=== PATIENT | female | born 1985 | race Two or more races ===

== ENCOUNTER 2020-12-26 11:45 | Emergency (ER) | payer OTHER, SELFPAY ==
--- NOTE | ~2020-12-26 | XR_ITS ---
EXAMINATION: XR CHEST CLINICAL INFORMATION: Left-sided chest pain COMPARISON: None TECHNIQUE: Frontal view of the chest was obtained. FINDINGS: No significant abnormality is noted involving the heart, lungs, mediastinum, bony thorax or soft tissues. XR/XR chest 1V IMPRESSION: Unremarkable examination.
[2020-12-26 12:08] VITALS: BP 122/76; PULSE 62; RESP 18; TEMP 36.9; O2SAT 100; BMI 19.3
--- NOTE | 2020-12-26 15:04 | ECG_ITS ---
Test Reason : DIZZINESS Blood Pressure : / mmHG Vent. Rate : 053 BPM Atrial Rate : 053 BPM P-R Int : 106 ms QRS Dur : 112 ms QT Int : 420 ms P-R-T Axes : -09 044 032 degrees QTc Int : 394 ms Sinus bradycardia with short WI Incomplete right bundle branch block Borderline ECG When compared with ECG of 26-NOV-2019 12:50, No significant change was found Referred By: Devan Helton Electronically Signed By:QUIANA LEORA MD
[2020-12-26 15:17] LABS: MANUAL DIFF FLAG NO
--- NOTE | 2020-12-26 15:21 | ED_ITS ---
HPI - General Adult General Chief complaint: Dizziness Stated complaint: nausea,dizzy,palpitations,abd pain Time Seen by Provider: 12/26/20 14:39 Source: patient Mode of arrival: ambulatory Limitations: no limitations History of Present Illness HPI narrative: Patient presents to ED for 4 days of nausea, abdominal pain, diarrhea, chest pain, and dizziness described as fatigue. Patient states symptoms started after eating some [place] food from a restaurant. Patient states no fever, chills, hematuria, or dysuria. Patient denies anyone else at home having similar symptoms. Related Data Home Medications Medication Instructions Recorded Confirmed clonidine HCl 0.1 mg tablet 0.1 mg PO DAILY tab 10/15/20 mirtazapine 45 mg tablet 45 mg PO BEDTIME 10/15/20 Allergies Allergy/AdvReac Type Severity Reaction Status Date / Time No Known Allergies Allergy Unverified 06/27/20 19:03 [No Known Allergies*] meclizine AdvReac Unknown anxiety Verified 11/28/19 00:00 Review of Systems Review of Systems: Yes all other systems are reviewed and are negative Constitutional: Constitutional: Reports as per HPI, Reports no additional constitutional complaints and Reports fatigue Eyes: Eyes: Reports as per HPI and Reports no additional eye complaints ENT: Reports system reviewed and no additional complaints, except as docum ented and Reports as per HPI Cardiovascular: Cardiovascular: Reports as per HPI, Reports no additional cardiovascular complaints and Reports chest pain Respiratory: Respiratory: Reports as per HPI and Reports no additional respiratory complaints Gastrointestinal: Gastrointestinal: Reports as per HPI, Reports no additional gastrointestinal complaints, Reports abdominal pain, Reports diarrhea and Reports nausea Musculoskeletal: Musculoskeletal: Reports no additional musculoskeletal complaints and Reports as per HPI Neurologic: Reports system reviewed and no additional complaints, except as documented and Reports as per HPI Psychiatric: Psychiatric: Reports no additional psychiatric complaints and Reports as per HPI Endocrine: Endocrine: Reports fatigue [facility] Past Medical History Medical History (Updated 12/26/20 @ 18:53 by JENNY Cortez) Physical exam Surgical History (Updated 10/15/20 @ 15:58 by Annamarie Khan) History of endometrial ablation Family History Family History (Updated 10/15/20 @ 16:00 by Annamarie Khan) Mother Diabetes High blood pressure Sciatic nerve disease Father No problems noted. Social History Social History Advance Directives: No Advance Directives Information Provided: Yes Physical Exam Vital Signs: Vital Signs: Last Vital Signs Temp 98.5 F 12/26/20 12:08 Pulse 78 12/26/20 17:40 Resp 15 12/26/20 17:40 BP 125/78 12/26/20 17:40 Pulse Ox 100 12/26/20 17:40 Body Mass Index 19.3 Const: General: cooperative, healthy appearing, comfortable, no acute distress, well developed, alert, awake and Physically active Orientation/consciousness: oriented to time and patient oriented x3 HENMT: Head: Yes normal to inspection, Yes No palpable skull fracture present, Yes normocephalic, Yes atraumatic, Yes abrasion, No Duffy's sign, No contusion, No cranial bruits, No hematoma, No laceration, No occipital foramen tenderness, No palpable skull fracture, No raccoon eyes, No scalp lesion, No scalp tenderness, No Temporal artery tenderness present and No periorbital ecchymosis Eyes: General: appearance normal, both eyes and all related structures Neck: Neck: Yes normal visual inspection, Yes full ROM, Yes no lymphadenopathy, Yes no meningeal signs, Yes trachea midline and No tender Chest: Chest palpation & inspection: normal inspection of the chest and normal palpation of entire chest wall Resp: Effort & Inspection: normal respiratory effort and able to speak in complete sentences Auscultation: clear to auscultation bilaterally Cardio: Jugular venous distension: no JVD Heart sounds: S1 normal heart sound present and S2 normal heart sound present GI: Inspection: Yes normal to inspection and No abdominal wall ecchymosis Palpation (GI): Soft to palpation, not firm, Tenderness to palpation present (GI) in the epigastrum, no guarding and not rigid : General: No CVA tenderness and Yes no CVA tenderness Back/Spine/Pelvis: Back: no CVA tenderness, No CVA tenderness and No back tenderness Skin: General skin exam: no rashes or lesions noted and elasticity normal Neuro: General: oriented to time, patient oriented x3, no meningeal signs and CN's II-XI intact bilaterally Cranial nerves: Yes CN's II-XII intact bilaterally Extrem: General: Yes normal to inspection and Yes full ROM Psych: Appearance: grossly normal, well kempt and not disheveled Course Course Course Narrative: Most likely patient is having food poisoning/gastroenteritis from food she ate from restaurants. Due to patient stating chest pain she will also have a cardiac evaluation. COVID shot also will be sent to make sure that she is not having COVID induced gastroenteritis. Reevaluation(s) Reevaluation #1: Patient's troponin negative. Chest x-ray negative for pneumonia. Patient's COVID swab negative. Patient's EKG negative STEMI. Patient's symptoms improved after medical intervention. Patient passed p.o. challenge. No indication for CT scan abdomen. Abdomen now is soft benign and nontender on palpation. Patient educated on brat diet. Time: 18:48 Medical Decision Making MDM Narrative Medical decision making narrative: Food poisoning. Lab Data Result diagrams: 12/26/20 15:10 Labs: Lab Results 12/26/20 12/26/20 12/26/20 Range/Units 15:10 15:10 15:11 WBC 4.0 L (4.8-10.8) X10*3/uL RBC 4.02 L (4.20-5.50) X10*6/uL Hgb 12.6 (12.0-16.0) g/dl Hct 39.1 (37-47) % MCV 97.3 (80-98) fL MCH 31.3 (27.0-33.0) pg MCHC 32.2 (31.0-35.0) g/dl RDW 12.4 (11.0-16.0) % Plt Count 234 (160-400) X10*3/uL MPV 10.5 (9.4-12.3) fL Immature Gran % (Auto) 0.0 (0.0-0.4) % Neut % (Auto) 51.9 (45-73) % Lymph % (Auto) 37.7 (20-40) % [place] % (Auto) 8.2 (2-11) % Eos % (Auto) 2.0 (0-4) % Baso % (Auto) 0.2 (0-2) % Lymph # (Auto) 1.5 (1.2-4.9) X10*3/uL [place] # (Auto) 0.3 (0.1-1.2) X10*3/uL Eos # (Auto) 0.1 (0.0-0.4) X10*3/uL Baso # (Auto) 0.0 (0.0-0.2) X10*3/uL Abs Immat Gran (auto) 0.00 (0.00-0.03) X10*3/uL Absolute Neuts (auto) 2.1 (2.0-8.3) X10*3/uL Absolute Nucleated RBC 0.000 (0.0-0.012) X10*3/uL Nucleated RBC % (auto) 0.0 (0.0-0.2) /100WBC PT 13.3 H (10.8-13.0) SEC INR 1.1 (0.9-1.1) APTT 36.1 (24.1-38.0) SEC Total Bilirubin 0.6 (0.0-1.0) mg/dL Direct Bilirubin 0.2 (0.0-0.5) mg/dL AST 16 (5-31) U/L ALT 9 (0-31) U/L Alkaline Phosphatase 43 (39-117) U/L Troponin I High Sens (<3.5-17.0) ng/L Total Protein 7.8 (6.5-8.0) g/dL Albumin 4.5 (3.5-5.0) g/dL Lipase 22 (8-78) U/L Beta HCG, Quant < 2 mIU/mL Coronavirus (PCR) (Negative) Influenza Type A (PCR) (Negative) Influenza Type B (PCR) (Negative) RSV RNA Qual (PCR) (Negative) 12/26/20 12/26/20 Range/Units 15:11 16:55 WBC (4.8-10.8) X10*3/uL RBC (4.20-5.50) X10*6/uL Hgb (12.0-16.0) g/dl Hct (37-47) % MCV (80-98) fL MCH (27.0-33.0) pg MCHC (31.0-35.0) g/dl RDW (11.0-16.0) % Plt Count (160-400) X10*3/uL MPV (9.4-12.3) fL Immature Gran % (Auto) (0.0-0.4) % Neut % (Auto) (45-73) % Lymph % (Auto) (20-40) % [place] % (Auto) (2-11) % Eos % (Auto) (0-4) % Baso % (Auto) (0-2) % Lymph # (Auto) (1.2-4.9) X10*3/uL [place] # (Auto) (0.1-1.2) X10*3/uL Eos # (Auto) (0.0-0.4) X10*3/uL Baso # (Auto) (0.0-0.2) X10*3/uL Abs Immat Gran (auto) (0.00-0.03) X10*3/uL Absolute Neuts (auto) (2.0-8.3) X10*3/uL Absolute Nucleated RBC (0.0-0.012) X10*3/uL Nucleated RBC % (auto) (0.0-0.2) /100WBC PT (10.8-13.0) SEC INR (0.9-1.1) APTT (24.1-38.0) SEC Total Bilirubin (0.0-1.0) mg/dL Direct Bilirubin (0.0-0.5) mg/dL AST (5-31) U/L ALT (0-31) U/L Alkaline Phosphatase (39-117) U/L Troponin I High Sens < 3.5 (<3.5-17.0) ng/L Total Protein (6.5-8.0) g/dL Albumin (3.5-5.0) g/dL Lipase (8-78) U/L Beta HCG, Quant mIU/mL Coronavirus (PCR) NEGATIVE (Negative) Influenza Type A (PCR) NEGATIVE (Negative) Influenza Type B (PCR) NEGATIVE (Negative) RSV RNA Qual (PCR) NEGATIVE (Negative) ECG Data Interpretation: Sinus Devon. Ventricular rate 53. QRS 112. PRT 106. QTC 394. Negative STEMI Discharge Plan Discharge Clinical Impression: Food poisoning, Gastroenteritis Patient Disposition: Home, Self-Care Instructions: Gastroenteritis (ED), Food Poisoning (ED) Additional Instructions: Regrese al servicio de urgencias si empeora el dolor abdominal, jagdeep en las heces, n?useas / v?mitos intratables, incapacidad para tolerar alimentos s?lidos / l?quidos, fiebre, escalofr?os, debilidad, disuria, hematuria, dolor en el costado, dolor en el pecho, dificultad para respirar, dolor en la pantorrilla, hinchaz?n de las extremidades inferiores, dolor en el pecho al inspirar o cualquier otro s?ntoma relacionado. Recomendar dieta de mocosos Referrals: Carolina Herrera MD [Primary Care Provider] - 2 days (Food poisoning. Gastroenteritis. COVID swab negative. EKG negative for STEMI. Troponin negative. Labs normal) Stand Alone Forms: Work/School Release Interventions: ED Discharge Assessment Last Done: 12/26/20 19:09 Discharge Date/Time: 12/26/20 19:11 Print Language: [place] Verde[place]
[2020-12-26 15:24] LABS: Basophils Percent Auto 0.2 % (0-2); Eosinophils Absolute Auto 0.1 X10*3/uL (0.0-0.4); Hematocrit 39.1 % (37-47); Hemoglobin 12.6 g/dl (12.0-16.0); Lymphocytes Absolute Auto 1.5 X10*3/uL (1.2-4.9); Lymphocytes Percent Auto 37.7 % (20-40); Mean Corpuscular HGB Conc 32.2 g/dl (31.0-35.0); Mean Corpuscular Hemoglobin 31.3 pg (27.0-33.0); Mean Corpuscular Volume 97.3 fL (80-98); Mean Platelet Volume 10.5 fL (9.4-12.3); Monocytes Absolute Auto 0.3 X10*3/uL (0.1-1.2); Monocytes Percent Auto 8.2 % (2-11); Neutrophils Absolute Auto 2.1 X10*3/uL (2.0-8.3); Neutrophils Percent Auto 51.9 % (45-73); Platelet Count 234 X10*3/uL (160-400); Red Blood Count 4.02 X10*6/uL (4.20-5.50); Red Cell Distribution Width 12.4 % (11.0-16.0)
[2020-12-26 15:34] LABS: INTERNATIONAL NORM RATIO 1.1 (0.9-1.1); Prothrombin Time 13.3 SEC (10.8-13.0)
[2020-12-26 15:37] LABS: Partial Thromboplastin Time 36.1 SEC (24.1-38.0)
[2020-12-26 15:41] LABS: Alanine Aminotransferase 9 U/L (0-31); Albumin Level 4.5 g/dL (3.5-5.0); Alkaline Phosphatase 43 U/L (39-117); Aspartate Amino Transferase 16 U/L (5-31); Bilirubin Direct 0.2 mg/dL (0.0-0.5); Bilirubin Total 0.6 mg/dL (0.0-1.0); Lipase 22 U/L (8-78); Total Protein 7.8 g/dL (6.5-8.0)
[2020-12-26 15:46] LABS: HCG Quantitative < 2 mIU/mL
[2020-12-26] MEDS: ondansetron HCL 4 MG/2 ML VIAL IVPUSH (15:57)
[2020-12-26] MEDS: Famotidine/PF 20 MG/2 ML VIAL IVPUSH (15:57)
[2020-12-26] MEDS: 0.9 % Sodium Chloride 1,000 ML 999 ML IV (15:57)
[2020-12-26 15:58] VITALS: BP 128/75; PULSE 60; PULSE 61; RESP 15; O2SAT 100
[2020-12-26 15:59] LABS: Influenza A PCR NEGATIVE (Negative); Influenza B PCR NEGATIVE (Negative); Resp Syncy Virus RNA Qual PCR NEGATIVE (Negative); SARS COV2 PCR INHOUSE NEGATIVE (Negative)
[2020-12-26 17:35] VITALS: PULSE 120
[2020-12-26 17:40] VITALS: BP 125/78; PULSE 78; RESP 15; O2SAT 100
--- NOTE | 2020-12-26 17:41 | PC.NURSE ---
patients HR increased to 120, patient reported feeling anxious, patient has not taken her home anxiety meds today, patient was given instructions to slow down her breathing, within 2 minutes the patient HR came down to 75-85, SR
[2020-12-26 17:44] LABS: Troponin-I High Sensitivity < 3.5 ng/L (<3.5-17.0)
== END 2020-12-26 19:11 | disposition home or self-care (01) ==
PROVIDERS: Physician Assistant; Emergency Provider Emergency Medicine; PCP Internal Medicine
DX: A05.9 Bacterial foodborne intoxication, unspecified (principal); R00.2 Palpitations; Z20.822 Contact with and (suspected) exposure to COVID-19
CPT/HCPCS: 0241U; 36415; 71045; 80076; 83690; 84484; 84702; 85025; 85610; 85730; 93005; 96361; 96374; 96375; 99284; J2405

== ENCOUNTER → 2021-03-06 09:21 | Outpatient (BNVA) | payer OTHER, SELFPAY | PROVIDERS: PCP Internal Medicine; Referring Provider Internal Medicine; Visit Provider Internal Medicine Cardiovascular Disease | DX: R00.2 Palpitations (principal) | CPT/HCPCS: 93005; 99202 ==

== ENCOUNTER → 2021-04-01 10:41 | Outpatient (REF) | payer OTHER, SELFPAY ==
--- NOTE | 2021-04-01 10:44 | HM_ITS ---
The patient is a 35-year-old female. REQUESTING PROVIDER: Dr. Conner Messer. REASON FOR TEST: Palpitations. INTERPRETATION: The patient was hooked up to cardiac event monitor from 04/01/2021 to 05/01/2021 for a total period of 30 days. FINDINGS: Baseline rhythm is normal sinus rhythm with heart rate varying from 55 beats per minute to 125 beats per minute. There were no arrhythmias noted. The patient activated the event monitor multiple times, but did not report any symptoms. All of the activated events correlated with sinus rhythm. CONCLUSION: Cardiac event monitor is remarkable. 1. Baseline normal sinus rhythm. 2. No significant arrhythmias. 3. The patient activated event monitor without any reported symptoms correlated with sinus rhythm. Shyam Lamb MD NRS/MODL / [id number]
== END ==
LOC: HO.CARD 10:41
PROVIDERS: Visit Provider Internal Medicine Cardiovascular Disease
DX: R00.2 Palpitations (principal)
CPT/HCPCS: 93270

== ENCOUNTER → 2021-04-08 07:16 | Outpatient (REF) | payer OTHER, SELFPAY ==
--- NOTE | 2021-04-08 07:21 | CA_ITS ---
Transthoracic Echocardiogram Patient (Last, First, Middle): Yelena Seaman C Gender: Female Date of : 1985 Age: 35 Procedure Date: 04/08/2021 Procedure Type: Transthoracic Echocardiogram Location: OP Height: 167.64 cm Weight: 54.43 kg BSA: 1.61 m2 Heart Rate: bpm BP: 116 / 68 mmHg Registered Nurses: Zia MD: Conner Messer MD Lodge Attendant: Shyam Lamb MD Symptoms: I42.9 - Cardiomyopathy, unspecified Study Quality: Good ECG Rhythm: Sinus Conclusions: - Essentially normal study Findings Left Ventricle Normal left ventricular size, thickness, and systolic function. The visually estimated ejection fraction is between 60-65%. Diastolic function is normal for age. Right Ventricle Normal right ventricular cavity size and systolic function. Atria Both atria are normal in size. Interatrial shunt cannot be excluded. Aortic Valve Normal aortic valve structure and function. There is no aortic valve stenosis. There is no aortic valve regurgitation. Mitral Valve Normal mitral valve structure and function. There is trace mitral valve regurgitation. There is no mitral valve stenosis. Pulmonic Valve The pulmonic valve is likely normal. There is trace pulmonic valve regurgitation. Tricuspid Valve Normal tricuspid valve structure. There is trace tricuspid valve regurgitation. The right ventricular systolic pressure is normal. The right ventricular systolic pressure is 26 mmHg. Normal right atrial pressure. There is no evidence of pulmonary hypertension. Great Vessels All visible segments of the aorta are normal in size. The pulmonary artery was not well visualized. Venous The inferior vena cava is normal in size and collapses greater than 50% with inspiration. Pericardium/Pleural There is no evidence of pericardial effusion. Prior Study Comparison No prior study available for comparison. Measurements 2D Linear Measurements RVIDd: 2.39 RVIDd Index: 1.48 IVSd: 0.59 0.6-0.9/0.6-1.0 cm LVIDd: 4.32 3.9-5.3/4.2-5.9 cm LVIDd Index: 2.68 2.4-3.2/2.2-3.1 cm/m2 LVIDs: 3.37 2.0-3.6 cm LVPWd: 0.77 0.7-1.1 cm Ao Root: 2.60 2.1-3.5 cm LA Diam: 2.60 2.7-3.8/3.0-4.0 cm LAIDs Index: 1.61 1.5-2.3 cm/m2 LV Mass: 106.94 67-162/88-224 g LV Mass Index: 66.42 43-95/49-115 g/m2 LVOT Diam: 2.00 3.0+(-)1.3 cm 2D Systolic Function EF 4C: 60.00 >55% EF 2C: 52.00 >55% Mitral Valve MV Pk E: 0.65 MV PK A: 0.33 MV Decel Time: 120.00 E/A: 2.00 E'Lateral: 16.50 E'Medial: 10.90 E/E' Med: 6.00 E/E' Lat: 3.90 Aortic Valve AoV Pk Scar: 1.20 AoV Mn Scar: 0.81 AoV VTI: 0.25 AoV Pk Grad: 6.00 Aov Mn Grad: 3.00 AZRA Cont.VTI: 2.62 LVOT LVOT Pk Scar: 0.93 LVOT Mn Scar: 0.70 LVOT VTI: 0.21 LVOT Pk Grad: 3.00 LVOT Mn Grad: 2.00 LVOT Diam: 2.00 LVOT Area: 3.14 Diastolic Function MV Pk E: 0.65 MV Pk A: 0.33 E/A: 2.00 E'Medial: 10.90 E/E' Med: 6.00 E' Laterial: 16.50 E/E' Lat: 3.90 Tricuspid Valve TR Pk Scar: 2.39 TR Pk Grad: 23.00 RA Press: 3.00 RVSP: 26.00 Great Vessels Aorta Ao Root-2D: 2.60 2.0-3.7 cm Ao Asc: 2.80 2.1-3.4 cm Ao Arch: 2.20 Updated in Other Vendor System with Status of Final Shyam Lamb MD electronically signed on 04/08/2021 5:15:49 PM with status of Final
== END ==
LOC: HO.CARD 07:16
PROVIDERS: PCP Internal Medicine; Visit Provider Internal Medicine Cardiovascular Disease
DX: I42.9 Cardiomyopathy, unspecified (principal); R00.2 Palpitations
CPT/HCPCS: 93306

== ENCOUNTER 2021-04-11 11:00 | Emergency (ER) | payer OTHER, SELFPAY ==
[2021-04-11 11:04] VITALS: BP 112/76; PULSE 64; RESP 16; TEMP 36.9; O2SAT 98; BMI 19.3
--- NOTE | 2021-04-11 12:10 | ED_ITS ---
HPI - General Adult General Chief complaint: General Medical Stated complaint: VOMITING NAUSEA Time Seen by Provider: 04/11/21 11:35 Source: patient Mode of arrival: ambulatory Limitations: no limitations History of Present Illness HPI narrative: 35 y/o female presenting with 2 days of body aches, generalized weakness, persistent nausea and occasional vomiting after she received her 2nd dose of the COVID vaccination. She also had some fevers on the day of the vaccine. She has some mild central abdominal discomfort, only when she vomits. She denies SOB, chest pain, or chance of . No urinary symptoms. She has been only able to eat small amounts of food, nothing substantial for the last 2 days. MD complaint: N/V and body aches Onset (ago): day(s) (2) Location: abdomen, left, right, upper extremity and lower extremity Radiation: non-radiation Severity: moderate Quality: aching Pain Consistency: constant Relieving factors: none Exacerbating factors: movement Associated symptoms: fever/chills, headaches, loss of appetite, malaise, nausea/vomiting and weakness Treatments prior to arrival: none Related Data Home Medications Medication Instructions Recorded Confirmed clonidine HCl 0.1 mg tablet 0.1 mg PO DAILY tab 10/15/20 03/06/21 mirtazapine 45 mg tablet 45 mg PO BEDTIME 10/15/20 03/06/21 Previous Rx's Medication Instructions Recorded ondansetron 4 mg PO DAILY PRN #10 tab 04/11/21 Allergies Allergy/AdvReac Type Severity Reaction Status Date / Time meclizine AdvReac Intermediate anxiety Verified 02/12/21 16:53 Review of Systems Review of Systems: Constitutional: + Fever, No Chills ENT/Mouth: No sore throat, No Rhinorrhea, No Swallowing Difficulty Eyes: No Eye Pain, No Swelling, No Redness Cardiovascular: No Chest Pain, No SOB, No Orthopnea, No Edema Respiratory: No Cough, No Sputum, No Wheezing, No dyspnea Gastrointestinal: + Nausea, + Vomiting, No Diarrhea, No abdominal Pain, No Hematochezia, No Melena Genitourinary: No Dysuria, No Urinary Frequency, No Hematuria Musculoskeletal: No joint pain, No Myalgias Skin: No Skin Lesions, No rash Neuro: + Weakness, No Numbness, No Dizziness,+ Headache Psych: + Anxiety/Panic, No Depression Heme/Lymph: No Bruising, No Lymphadenopathy Endocrine: No Polyuria, No Polydipsia [facility] Past Medical History Attestation statement: The following information was validated with the patient. Medical History Dizziness Incomplete right bundle branch block Physical exam Sinus tachycardia Surgical History History of endometrial ablation Family History Family History Mother Diabetes High blood pressure Sciatic nerve disease Father No problems noted. Social History Social History (Updated 03/06/21 @ 09:36 by AMINA Jay) Alcohol intake: never Patient Tobacco Use Status: Former Tobacco user Use of substances other than those prescribed or required for medical reasons: No Advance Directives: Yes Advance Directives Information Provided: Yes Advance Directives on File: No Patient : No Physical Exam Vital Signs: Vital Signs: Last Vital Signs Temp 98.0 F 04/11/21 12:49 Pulse 80 04/11/21 12:49 Resp 16 04/11/21 12:49 BP 127/67 04/11/21 12:49 Pulse Ox 98 04/11/21 12:49 Body Mass Index 19.3 Appearance: Alert. Oriented X3. No acute distress. Eyes: Pupils equal, round and reactive to light. ENT: Pharynx normal. Neck: Normal inspection. Neck supple. CVS: Normal heart rate and rhythm. Pulses normal. Respiratory: No respiratory distress. Breath sounds normal. Abdomen: Soft and nontender. +BS x4 Skin: Skin warm and dry. Normal skin color. Normal skin turgor. No rashes. Extremities: No lower extremity edema. Neuro: Oriented X 3. No motor deficit. No sensory deficit. Ambualtes with steady gait Course Course Course Narrative: 35 y/o female presenting with generalized body aches and pains, and nausea/vomiting x2 days after 2nd COVID vaccine. Her VS are normal on arrival and physical examination is benign. Will check Ureg, COVID swab and give SL zofran and reassess. Reevaluation(s) Reevaluation #1: No vomiting while here. COVID negative. Stable for d/c with PRN zofran. Medical Decision Making Lab Data Labs: Lab Results 04/11/21 04/11/21 Range/Units 12:00 12:07 Urine Test NEGATIVE (NEGATIVE) COVID-19 ([facility]) Negative (Negative) COVID-19 Clin Com See Note Discharge Plan Discharge Clinical Impression: Nausea & vomiting Qualifiers: Vomiting type: unspecified Vomiting Intractability: non-intractable Qualified Code(s): R11.2 - Nausea with vomiting, unspecified Patient Disposition: Home, Self-Care Instructions: Acute Nausea and Vomiting (ED) Additional Instructions: Take the prescribed medication as needed for nausea. Your symptoms are most likely related to the COVID vaccine and will get better. Your COVID test is negative. Rest and drink plenty of fluids. Stick to a bland diet while you are not feeling well. Follow up with your doctor as needed. If you develop new or worsening symptoms call 911 or come back to the ER for further evaluation. [place] el medicamento recetado seg?n sea necesario para las n?useas. Es muy probable que juliet s?ntomas est?n relacionados con la vacuna COVID y que mejoren. Vazquez prueba de COVID es negativa. Descanse y rosette muchos l?quidos. Siga mara dieta blanda mientras no se sienta kate. Malathi un seguimiento con vazquez m?dico seg?n sea necesario. Si presenta s?ntomas nuevos o que empeoran, llame al 911 o regrese a la markie de emergencias para mara evaluaci?n adicional. Prescriptions: New ondansetron 4 mg tablet,disintegrating 4 mg PO DAILY PRN (Reason: nausea and vomiting) Qty: 10 RF: 0 No Action clonidine HCl 0.1 mg tablet 0.1 mg PO DAILY RF: 0 mirtazapine 45 mg tablet 45 mg PO BEDTIME RF: 0 Stand Alone Forms: Work/School Release
[2021-04-11 12:21] LABS: UPreg QC Valid YES; Urine Pregnancy NEGATIVE (NEGATIVE)
[2021-04-11 12:49] VITALS: BP 127/67; PULSE 80; RESP 16; TEMP 36.7; O2SAT 98
[2021-04-11 13:05] LABS: COVID-19 Test Negative (Negative); IDNOW Serial# 9DD0AD1C
== END 2021-04-11 13:20 | disposition home or self-care (01) ==
PROVIDERS: Physician Assistant; Emergency Provider Emergency Medicine Emergency Medical Services; PCP Internal Medicine
DX: R11.2 Nausea with vomiting, unspecified (principal); Z20.822 Contact with and (suspected) exposure to COVID-19; R50.9 Fever, unspecified; R53.1 Weakness
CPT/HCPCS: 36415; 81025; 87635; 99283; 99284

== ENCOUNTER 2021-04-25 18:22 | Emergency (ER) | payer OTHER, SELFPAY | END 2021-04-25 19:58 | disposition left against medical advice (07) | PROVIDERS: Emergency Provider Emergency Medicine; PCP Internal Medicine | DX: F41.9 Anxiety disorder, unspecified (principal) ==

== ENCOUNTER 2021-08-13 09:33 | Outpatient (REF) | payer OTHER, SELFPAY ==
[2021-08-13 10:24] LABS: MANUAL DIFF FLAG NO
[2021-08-13 10:31] LABS: Basophils Percent Auto 0.4 % (0-2); Eosinophils Absolute Auto 0.1 X10*3/uL (0.0-0.4); Eosinophils Percent Auto 1.8 % (0-4); Hematocrit 39.2 % (37.0-47.0); Hemoglobin 12.5 g/dl (12.0-16.0); Imm Gran Abs Auto 0.01 X10*3/uL (0.00-0.03); Imm Gran Pct Auto 0.2 % (0.0-0.4); Lymphocytes Absolute Auto 1.5 X10*3/uL (1.2-4.9); Lymphocytes Percent Auto 33.8 % (20-40); Mean Corpuscular HGB Conc 31.9 g/dl (31.0-35.0); Mean Corpuscular Hemoglobin 32.1 pg (27.0-33.0); Mean Corpuscular Volume 100.5 fL (80.0-98.0); Mean Platelet Volume 10.1 fL (9.4-12.3); Monocytes Absolute Auto 0.3 X10*3/uL (0.1-1.2); Monocytes Percent Auto 7.3 % (2-11); Neutrophils Absolute Auto 2.57 x10*3/uL (2.0-8.3); Neutrophils Percent Auto 56.5 % (45-73); Platelet Count 227 X10*3/uL (160-400); Red Cell Distribution Width 12.7 % (11.0-16.0); White Blood Count 4.6 X10*3/uL (4.8-10.8)
[2021-08-13 11:19] LABS: Anion Gap 8 (12-20); Blood Urea Nitrogen 8 mg/dL (9-16); Carbon Dioxide 29 mmol/L (22-29); Chloride 106 mmol/L (96-108); Cholesterol 177 mg/dL; Estimated Glomerular Filt Rate > 60; Glucose Fasting 84 mg/dL (60-99); HDL Cholesterol 52 mg/dL; LDL Cholesterol Calculated 112 mg/dl; Potassium 4.1 mmol/L (3.3-5.1); Sodium 139 mmol/L (135-145); Triglycerides 69 mg/dL
[2021-08-13 11:22] LABS: HBsAGNum1 0.19 S/CO (0.00-0.99); HIV AB/AG Nonreactive (Nonreactive); HIV Num 1 0.04 S/CO (0.00-0.99); Hepatitis B Surface Antigen Negative (Negative); ~HepC Num1 0.12 S/CO (0.00-0.79); ~Hepatitis C Antibody Nonreactive (Nonreactive)
[2021-08-13 11:50] LABS: Syphilis Screen Nonreactive (Nonreactive)
[2021-08-13 16:02] LABS: CT PCR NOT DETECTED (Not Detect.); NG PCR NOT DETECTED (Not Detect.)
[2021-08-14 11:05] LABS: BV Int Neg Control Negative (Negative); BV Int Pos Control Positive (Positive)
[2021-08-21 14:11] LABS: Vitamin D 25-OH, D2 <4 ng/mL; Vitamin D 25-OH, D3 16 ng/mL; Vitamin D 25-OH, Total 16 ng/mL (30-100)
== END 2021-08-13 09:34 | disposition home or self-care (01) ==
LOC: HO.LAB 09:33
PROVIDERS: Nurse Practitioner Family; PCP Internal Medicine; Visit Provider Obstetrics & Gynecology
DX: Z00.00 Encounter for general adult medical examination without abnormal findings (principal); Z11.3 Encounter for screening for infections with a predominantly sexual mode of transmission; Z11.4 Encounter for screening for human immunodeficiency virus [HIV]; N76.0 Acute vaginitis; B96.89 Other specified bacterial agents as the cause of diseases classified elsewhere
CPT/HCPCS: 36415; 80048; 80061; 82306; 85025; 86780; 86803; 87340; 87389; 87480; 87491; 87510; 87591; 87660; 99212

== ENCOUNTER 2021-08-23 15:21 | Emergency (ER) | payer OTHER, SELFPAY ==
[2021-08-23 15:48] VITALS: BP 127/85; PULSE 94; RESP 18; TEMP 37.3; O2SAT 99; BMI 17.8
--- NOTE | 2021-08-23 16:19 | ED.DIZZY ---
HPI - Dizziness General Chief Complaint: Dizziness Stated Complaint: dizzy Time Seen by Provider: 08/23/21 16:10 Source: patient Mode of arrival: ambulatory Limitations: no limitations History of Present Illness HPI Narrative: 35 y/o female with history of anemia requiring blood transfusions after both of her sections, s/p tubal ligation and endometrial ablation in [place] who presents to the ER with intermittent dizziness, fatigue and feeling unwell for the last 2 weeks after she had heavy vaginal bleeding for 4 days. She thinks she may have had a miscarriage because she passed a very large blood clot 2 weeks ago and had severe cramping. She had heavy bleeding for 4 days straight and is now stopped. She reports a history of very heavy and painful periods that last anywhere from 7-14 days. IV iron in the past as well. She is not on any oral iron supplements. She denies any shortness of breath, chest pain, presyncope or syncope. She was recently seen by OBGYN here on August 13 and diagnosed with BV, treated with p.o. Flagyl for a week. She denies any ongoing vaginal discharge that is abnormal for her and she denies any fevers or vaginal/pelvic pain. MD elicited complaint: dizziness and lightheadedness Pertinent past history: anemia Onset (ago): week(s) (2) Timing: gradual onset Severity: moderate Description: lightheadedness Context: other (Heavy vaginal bleeding) History of similar symptoms: Yes Exacerbating factors: movement/ambulation, change in body position and standing Relieving factors: lying down Associated symptoms: nausea, malaise, chills and abnormal vaginal bleeding Related Data Home Medications Medication Instructions Recorded Confirmed clonidine HCl 0.1 mg tablet 0.1 mg PO DAILY tab 10/15/20 03/06/21 mirtazapine 45 mg tablet 45 mg PO BEDTIME 10/15/20 03/06/21 Previous Rx's Medication Instructions Recorded ondansetron 4 mg disintegrating 4 mg PO DAILY PRN #10 tab 04/11/21 tablet metronidazole 500 mg tablet 500 mg PO BID 7 Days #14 tab 08/13/21 cholecalciferol (vitamin D3) 50 50 mcg PO DAILY 90 Days #90 cap 08/21/21 mcg (2,000 unit) capsule ferrous sulfate 325 mg (65 mg 325 mg PO DAILY #30 tab 08/23/21 iron) tablet Allergies Allergy/AdvReac Type Severity Reaction Status Date / Time meclizine AdvReac Intermediate anxiety Verified 08/23/21 15:48 Review of Systems Review of Systems: Constitutional: No Fever, No Chills ENT/Mouth: No sore throat, No Rhinorrhea, No Swallowing Difficulty Eyes: No vision changes Cardiovascular: No Chest Pain, No SOB Gastrointestinal: + Nausea, No Vomiting, No Diarrhea, No abdominal Pain, No Hematochezia, No Melena Genitourinary: No Dysuria, No Urinary Frequency, No Hematuria, No vaginal discharge, No current vaginal bleeding Musculoskeletal: No joint pain, No Myalgias Skin: No Skin Lesions, No rash Neuro: + Weakness, No Numbness, + Dizziness, No Headache Psych: No Anxiety/Panic, No Depression Heme/Lymph: No Bruising, No Lymphadenopathy Endocrine: No Polyuria, No Polydipsia PMFSH Past Medical History Medical History Dizziness Incomplete right bundle branch block Physical exam Sinus tachycardia Surgical History History of endometrial ablation Family History Family History Mother Diabetes High blood pressure Sciatic nerve disease Father No problems noted. Social History Social History Alcohol intake: never Patient Tobacco Use Status: Former Tobacco user Advance Directives: No Advance Directives Information Provided: No Physical Exam Vital Signs: Vital Signs: Last Vital Signs Temp 99.1 F 08/23/21 15:48 Pulse 104 H 08/23/21 18:53 Resp 16 08/23/21 17:23 BP 139/100 H 08/23/21 18:53 Pulse Ox 100 08/23/21 17:23 Body Mass Index 17.8 Appearance: Alert. Oriented X3. No acute distress. Eyes: Pupils equal, round and reactive to light. Conjunctiva with slight pallor. ENT: Pharynx normal. Neck: Normal inspection. Neck supple. CVS: Normal heart rate and rhythm. Pulses normal. Respiratory: No respiratory distress. Breath sounds normal. Abdomen: Soft and nontender. +BS x4 Skin: Skin warm and dry. Normal skin color. Normal skin turgor. No rashes. Extremities: No lower extremity edema. Neuro: Oriented X 3. No motor deficit. No sensory deficit. Course Course Course Narrative: 35-year-old history of anemia requiring transfusion and history of menorrhagia presenting with intermittent dizziness and feeling on while after she had heavy vaginal bleeding for 4 days about 2 weeks ago. Her vital signs are normal on arrival. Low suspicion for miscarriage given she had a tubal ligation in the past. Will check quantitative hCG, CBC and chemistry. Reevaluation(s) Reevaluation #1: Lab workup is unremarkable. HCG negative. Orthostatics negative. She is feeling okay. This time she is stable for discharge home with plan to follow up with her OBGYN to address her heavy menstrual periods. Will start iron supplement. Patient agreeable with plan. [facility] - Dizziness Medical Records Attestation: I reviewed the patient's medical records. Lab Data Attestation: I reviewed the patient's lab results. Result diagrams: 08/23/21 16:33 08/23/21 16:33 Labs: Lab Results 08/23/21 08/23/21 08/23/21 Range/Units 16:33 16:33 16:33 WBC 6.4 (4.8-10.8) X10*3/uL RBC 3.77 L (4.20-5.50) X10*6/uL Hgb 12.2 (12.0-16.0) g/dl Hct 36.2 L (37.0-47.0) % MCV 96.0 (80.0-98.0) fL MCH 32.4 (27.0-33.0) pg MCHC 33.7 (31.0-35.0) g/dl RDW 12.4 (11.0-16.0) % Plt Count 215 (160-400) X10*3/uL MPV 10.2 (9.4-12.3) fL Immature Gran % (Auto) 0.2 (0.0-0.4) % Neut % (Auto) 68.7 (45-73) % Lymph % (Auto) 23.4 (20-40) % Harmon % (Auto) 7.1 (2-11) % Eos % (Auto) 0.3 (0-4) % Baso % (Auto) 0.3 (0-2) % Lymph # (Auto) 1.5 (1.2-4.9) X10*3/uL Harmon # (Auto) 0.5 (0.1-1.2) X10*3/uL Eos # (Auto) 0.0 (0.0-0.4) X10*3/uL Baso # (Auto) 0.0 (0.0-0.2) X10*3/uL Abs Immat Gran (auto) 0.01 (0.00-0.03) X10*3/uL Absolute Neuts (auto) 4.4 (2.0-8.3) x10*3/uL Absolute Nucleated RBC 0.000 (0.0-0.012) X10*3/uL Nucleated RBC % (auto) 0.0 (0.0-0.2) /100WBC PT 13.5 H (9.9-13.0) SEC INR 1.2 H (0.9-1.1) APTT 34.1 (24.1-38.0) SEC Sodium 138 (135-145) mmol/L Potassium 3.8 (3.3-5.1) mmol/L Chloride 107 (96-108) mmol/L Carbon Dioxide 21 L (22-29) mmol/L Anion Gap 14 (12-20) BUN 10 (9-16) mg/dL Creatinine 0.77 (0.5-1.4) mg/dL Estim Creat Clear Calc 79.6 Estimated GFR > 60 Random Glucose 84 (60-115) mg/dL Calcium 8.9 (8.4-10.2) mg/dL Magnesium 2.1 (1.6-2.6) mg/dL Total Bilirubin 0.6 (0.0-1.0) mg/dL Direct Bilirubin 0.2 (0.0-0.5) mg/dL AST 17 (5-31) U/L ALT 13 (0-31) U/L Alkaline Phosphatase 46 (39-117) U/L Total Protein 7.6 (6.5-8.0) g/dL Albumin 4.4 (3.5-5.0) g/dL Beta HCG, Quant < 2 mIU/mL ECG Data Attestation: I personally reviewed and interpreted this ECG as follows: ECG interpretation date: 08/23/21 Prior ECG tracings: available for review Interpretation: Normal sinus rhythm, incomplete right bundle branch block (old), normal MN interval 120 AMS, no ST segment elevations or depressions. No significant change from prior. Critical Care Time Critical Care Time Critical Care Time: No Discharge Plan Discharge Clinical Impression: Dizziness Menorrhagia Qualifiers: Menorrhagia type: with irregular cycle Qualified Code(s): N92.1 - Excessive and frequent menstruation with irregular cycle Patient Disposition: Home, Self-Care Instructions: Menorrhagia (ED), Dizziness (ED) Additional Instructions: Blood work today showed only very mild anemia, no need for IV iron or blood transfusion at this time. Recommend following up with [facility] for management of your heavy periods. Stay hydrated and make sure eating adequately. Take the prescribed iron supplement. Increased iron in your diet. Follow-up with your primary care doctor next week If you develop new or worsening symptoms call 911 or come back to the ER for further evaluation. Prescriptions: New ferrous sulfate 325 mg (65 mg iron) tablet 325 mg PO DAILY Qty: 30 RF: 0 No Action cholecalciferol (vitamin D3) 50 mcg (2,000 unit) capsule 50 mcg PO DAILY 90 Days Qty: 90 RF: 1 ondansetron 4 mg tablet,disintegrating 4 mg PO DAILY PRN (Reason: nausea and vomiting) Qty: 10 RF: 0 clonidine HCl 0.1 mg tablet 0.1 mg PO DAILY RF: 0 mirtazapine 45 mg tablet 45 mg PO BEDTIME RF: 0 metronidazole 500 mg tablet 500 mg PO BID 7 Days Qty: 14 RF: 0 Referrals: Sajan Barajas MD [Physician] - 2 days (Menorrhagia) Interventions: ED Discharge Assessment Last Done: 08/23/21 19:08 Discharge Date/Time: 08/23/21 19:08
[2021-08-23] MEDS: 0.9 % Sodium Chloride 1,000 ML 999 ML IVCONT (16:34)
[2021-08-23 16:38] LABS: MANUAL DIFF FLAG NO
[2021-08-23 16:40] LABS: Basophils Percent Auto 0.3 % (0-2); Eosinophils Percent Auto 0.3 % (0-4); Hematocrit 36.2 % (37.0-47.0); Hemoglobin 12.2 g/dl (12.0-16.0); Imm Gran Abs Auto 0.01 X10*3/uL (0.00-0.03); Imm Gran Pct Auto 0.2 % (0.0-0.4); Lymphocytes Absolute Auto 1.5 X10*3/uL (1.2-4.9); Lymphocytes Percent Auto 23.4 % (20-40); Mean Corpuscular HGB Conc 33.7 g/dl (31.0-35.0); Mean Corpuscular Hemoglobin 32.4 pg (27.0-33.0); Mean Platelet Volume 10.2 fL (9.4-12.3); Monocytes Absolute Auto 0.5 X10*3/uL (0.1-1.2); Monocytes Percent Auto 7.1 % (2-11); Neutrophils Absolute Auto 4.4 x10*3/uL (2.0-8.3); Neutrophils Percent Auto 68.7 % (45-73); Platelet Count 215 X10*3/uL (160-400); Red Blood Count 3.77 X10*6/uL (4.20-5.50); Red Cell Distribution Width 12.4 % (11.0-16.0); White Blood Count 6.4 X10*3/uL (4.8-10.8)
--- NOTE | 2021-08-23 16:44 | ECG_ITS ---
Test Reason : BARDWEC Blood Pressure : / mmHG Vent. Rate : 076 BPM Atrial Rate : 076 BPM P-R Int : 128 ms QRS Dur : 110 ms QT Int : 376 ms P-R-T Axes : 063 060 044 degrees QTc Int : 423 ms Normal sinus rhythm Incomplete right bundle branch block Borderline ECG When compared with ECG of 26-DEC-2020 15:27, No significant change was found Heart rate has increased Referred By: Leti Hamm Electronically Signed By:SADIQ SINGH MD
[2021-08-23 16:45] LABS: INTERNATIONAL NORM RATIO 1.2 (0.9-1.1); Prothrombin Time 13.5 SEC (9.9-13.0)
[2021-08-23 16:47] LABS: Partial Thromboplastin Time 34.1 SEC (24.1-38.0)
[2021-08-23 16:59] LABS: Alanine Aminotransferase 13 U/L (0-31); Albumin Level 4.4 g/dL (3.5-5.0); Alkaline Phosphatase 46 U/L (39-117); Anion Gap 14 (12-20); Aspartate Amino Transferase 17 U/L (5-31); Bilirubin Direct 0.2 mg/dL (0.0-0.5); Bilirubin Total 0.6 mg/dL (0.0-1.0); Blood Urea Nitrogen 10 mg/dL (9-16); Calcium 8.9 mg/dL (8.4-10.2); Carbon Dioxide 21 mmol/L (22-29); Chloride 107 mmol/L (96-108); Creatinine Clr Calc Pharmacy 79.6; Estimated Glomerular Filt Rate > 60; Glucose Random 84 mg/dL (60-115); Magnesium 2.1 mg/dL (1.6-2.6); Potassium 3.8 mmol/L (3.3-5.1); Sodium 138 mmol/L (135-145); Total Protein 7.6 g/dL (6.5-8.0)
[2021-08-23 17:23] VITALS: BP 135/83; PULSE 74; RESP 16; O2SAT 100
[2021-08-23 17:29] LABS: HCG Quantitative < 2 mIU/mL
[2021-08-23 18:50] VITALS: BP 136/84; PULSE 90
[2021-08-23 18:51] VITALS: BP 138/90; PULSE 93
[2021-08-23 18:53] VITALS: BP 139/100; PULSE 104
== END 2021-08-23 19:08 | disposition home or self-care (01) ==
PROVIDERS: Physician Assistant; Emergency Provider Internal Medicine; PCP Internal Medicine
DX: N92.1 Excessive and frequent menstruation with irregular cycle (principal); R42 Dizziness and giddiness; Z79.899 Other long term (current) drug therapy
CPT/HCPCS: 36415; 80048; 80076; 83735; 84702; 85025; 85610; 85730; 93005; 96360; 99283; 99284

== ENCOUNTER 2021-10-05 15:06 | Emergency (ER) | payer OTHER, SELFPAY ==
[2021-10-05 17:58] VITALS: BP 119/77; PULSE 95; TEMP 37.3; O2SAT 97; BMI 45.1
[2021-10-05 18:24] LABS: COVID-19 Test Positive (Negative)
== END 2021-10-05 23:09 | disposition left against medical advice (07) ==
PROVIDERS: Emergency Medicine; Emergency Provider Emergency Medicine; PCP Internal Medicine
DX: U07.1 COVID-19 (principal); R51.9 Headache, unspecified; R50.9 Fever, unspecified
CPT/HCPCS: 36415; 87635; 99282; 99283

== ENCOUNTER 2021-11-21 10:56 | Emergency (ER) | payer OTHER, SELFPAY ==
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
[2021-11-21 11:38] VITALS: BP 100/70; PULSE 97; RESP 18; TEMP 36.6; O2SAT 100; BMI 17.2
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
[2021-11-21] MEDS: Lidocaine 4 % Patch ADH..PATCH 1 PATCH TRANSDERMA (12:03)
[2021-11-21] MEDS: Cyclobenzaprine HCl 10 MG TABLET PO (12:03)
[2021-11-21] MEDS: Ketorolac Tromethamine 30 MG/ML VIAL IM (12:03)
[2021-11-21 13:25] VITALS: RESP 17
== END 2021-11-21 14:29 | disposition home or self-care (01) ==
PROVIDERS: Emergency Provider Emergency Medicine Emergency Medical Services; PCP Internal Medicine
DX: S13.4XXA Sprain of ligaments of cervical spine, initial encounter (principal); V43.52XA Car driver injured in collision with other type car in traffic accident, initial encounter; Y93.89 Activity, other specified; Y92.410 Unspecified street and highway as the place of occurrence of the external cause; Y99.9 Unspecified external cause status
CPT/HCPCS: 72125; 96372; 99283; 99284; J1885

== ENCOUNTER 2022-06-19 16:08 | Emergency (ER) | payer OTHER, SELFPAY ==
--- NOTE | ~2022-06-19 | XR_ITS ---
EXAMINATION: XR HAND, LEFT CLINICAL INFORMATION: Finger pain and limited range of motion COMPARISON: None TECHNIQUE: PA, lateral, and oblique views of the left hand. FINDINGS: No acute fracture or dislocation. Joint spaces throughout the hand and wrist are maintained. No erosions or chondrocalcinosis. No appreciable osteophyte formation. XR/XR hand LT min 3V IMPRESSION: 1. No acute osseous injury or radiographic evidence of erosive arthropathy.
[2022-06-19 16:15] VITALS: BP 143/63; PULSE 80; RESP 18; TEMP 36.2; O2SAT 98; BMI 18.6
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
== END 2022-06-19 19:03 | disposition home or self-care (01) ==
PROVIDERS: Emergency Provider Emergency Medicine; PCP Internal Medicine
DX: S63.611A Unspecified sprain of left index finger, initial encounter (principal); M79.645 Pain in left finger(s); X58.XXXA Exposure to other specified factors, initial encounter; Y93.9 Activity, unspecified; Y92.9 Unspecified place or not applicable; Y99.9 Unspecified external cause status; Z79.899 Other long term (current) drug therapy
CPT/HCPCS: 29130; 73130; 99282; 99283

== ENCOUNTER 2022-07-28 17:02 | Outpatient (REF) | payer OTHER, SELFPAY ==
--- NOTE | ~2022-07-28 | XR_ITS ---
EXAMINATION: XR HAND, LEFT CLINICAL INFORMATION: Pain in left hand COMPARISON: None TECHNIQUE: PA, lateral, and oblique views of the left hand. FINDINGS: The bones and soft tissues are normal. No fracture. Alignment is anatomic. Joint spaces are maintained. No erosions or soft tissue calcifications. XR/XR hand LT min 3V IMPRESSION: No acute osseous abnormality of the left hand.
== END 2022-07-28 17:03 | disposition home or self-care (01) ==
LOC: HO.HOSX 17:02
PROVIDERS: Visit Provider Orthopaedic Surgery
DX: M79.642 Pain in left hand (principal)
CPT/HCPCS: 73130

== ENCOUNTER → 2022-07-29 09:29 | Outpatient (BNVA) | payer OTHER, SELFPAY | PROVIDERS: PCP Internal Medicine; Visit Provider Orthopaedic Surgery | DX: S63.611A Unspecified sprain of left index finger, initial encounter (principal); M25.642 Stiffness of left hand, not elsewhere classified | CPT/HCPCS: 99202 ==

== ENCOUNTER 2022-09-25 12:02 | Emergency (ER) | payer OTHER, SELFPAY ==
--- NOTE | ~2022-09-25 | XR_ITS ---
EXAMINATION: XR CHEST CLINICAL INFORMATION: Chest pain since June COMPARISON: Chest x-ray 12/26/2020 TECHNIQUE: 2 views of the chest were obtained. FINDINGS: The lungs are clear. No airspace consolidation, pleural effusion, or pneumothorax. The cardiomediastinal silhouette is within normal limits. No acute osseous injury. XR/XR chest 2V IMPRESSION: No acute pulmonary process.
[2022-09-25 12:18] VITALS: BP 101/68; PULSE 70; RESP 18; TEMP 36.7; O2SAT 99; BMI 21.4
--- NOTE | 2022-09-25 12:19 | ED_ITS ---
HPI - Chest Pain General Chief Complaint: Chest Pain <JENNY Longoria Last Filed: 09/25/22 12:26> Stated Complaint: Chest Pain L Hand Numbness <JENNY Longoria Last Filed: 09/25/22 12:26> Time Seen by Provider: 09/25/22 13:32 <JENNY Longoria Last Filed: 09/25/22 12:26> Source: patient and family <DO Quinn Brizuela Last Filed: 09/25/22 13:50> Mode of arrival: ambulatory <DO Quinn Brizuela Last Filed: 09/25/22 13:50> Limitations: no limitations <DO Quinn Brizuela Last Filed: 09/25/22 13:50> History of Present Illness HPI narrative: 36-year-old female presents emergency department complaining of chest pain for the past 3 days. 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 She states she also has issues with the wrist than longstanding and worsens whenever she works she denies any fevers or chills she does have acute on chronic headache and takes sumatriptan for migraines. She denies any falls or injuries she denies fevers or chills cough nausea vomiting or diarrhea. <DO Quinn Brizuela Last Filed: 09/25/22 13:50> MD complaint: chest pain <DO Quinn Brizuela Last Filed: 09/25/22 13:50> Related Data Home Medications: Home Medications Medication Instructions Recorded Confirmed clonidine HCl 0.1 mg tablet 0.1 mg PO DAILY 10/15/20 10/16/21 mirtazapine 45 mg tablet 45 mg PO BEDTIME 10/15/20 10/16/21 Previous Rx's Medication Instructions Recorded ferrous sulfate 325 mg (65 mg 325 mg PO DAILY #30 tabs 08/23/21 iron) tablet sumatriptan succinate 25 mg tablet 25 mg PO Q2-4H PRN migraine 06/10/22 headache 30 days #9 tabs cholecalciferol (vitamin D3) 50 50 mcg PO DAILY 90 days #90 caps 08/21/22 mcg (2,000 unit) capsule prednisone 20 mg tablet 60 mg PO DAILY Asthma 5 days #15 09/25/22 tabs <JENNY Longoria Filed: 09/25/22 12:26> Allergies/Adverse Reactions: Allergies Allergy/AdvReac Type Severity Reaction Status Date / Time meclizine AdvReac Intermediate anxiety Verified 07/29/22 10:02 <JENNY Longoria - Last Filed: 09/25/22 12:26> Review of Systems Review of Systems: Review of systems: General: Patient denies any fever chills recent illness or falls Musculoskeletal: Denies back pain or body aches or other injuries HEENT: denies headache, runny nose, ear pain Respiratory: denies shortness of breath, cough Cardiovascular: no chest pain or palpitations : denies dysuria, frequency Abdomen: no nausea vomiting denies abdominal pain Extremities: no swelling, no pain Skin: no diaphoresis <Schuyler Ochoa DO - Last Filed: 09/25/22 13:50> Yes all other systems are reviewed and are negative <Schuyler Ochoa DO - Last Filed: 09/25/22 13:50> PMFSH Past Medical History Medical History: Medical History Dizziness Exposure to COVID-19 virus Incomplete right bundle branch block Moderate recurrent major depression Numbness Physical exam Sinus tachycardia <JENNY Longoria Last Filed: 09/25/22 12:26> Surgical History: Surgical History History of endometrial ablation <JENNY Longoria Last Filed: 09/25/22 12:26> Family History Family History: Family History Mother Diabetes High blood pressure Sciatic nerve disease Father No problems noted. 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 <JENNY Longoria Last Filed: 09/25/22 12:26> Physical Exam Vital Signs: Vital Signs: Last Vital Signs Temp 98.1 F 09/25/22 12:18 Pulse 55 09/25/22 13:21 Resp 14 09/25/22 13:21 BP 101/68 09/25/22 12:18 Pulse Ox 97 09/25/22 13:21 O2 Del Method 09/25/22 13:21 BMI result Body Mass Index 21.4 <JENNY Longoria - Last Filed: 09/25/22 12:26> Vital Signs: Last Vital Signs Temp 98.1 F 09/25/22 12:18 Pulse 55 09/25/22 13:21 Resp 14 09/25/22 13:21 BP 101/68 09/25/22 12:18 Pulse Ox 97 09/25/22 13:21 O2 Del Method 09/25/22 13:21 BMI result Body Mass Index 21.4 <Schuyler Ochoa DO - Last Filed: 09/25/22 13:50> General: Well-appearing well-nourished in no signs of distress HEENT: Normocephalic atraumatic Neck: No signs of JVD, no masses no tenderness or lymphadenopathy Cardiovascular: Regular rate and rhythm pain to her chest is reproducible with palpation Respiratory: Clear to auscultation bilaterally Abdomen: Soft non tender no masses Extremities: Normal pedal pulses no signs of edema the wrist appears to have ulnar gutter issues as the pain is to her pinky and ring finger she did not have signs carpal tunnel this time. Skin: Dry warm no rashes Back: No tenderness full ROM <Schuyler Ochoa DO - Last Filed: 09/25/22 13:50> Course Course Course Narrative: RME- 12:19PM - 36yoF c PMHx of Migraine headaches is presenting to the ED c c/o chest pain, left arm pain/numbness and a cough since June. Reports she has tried to talk to her primary care provider about this and they continue to tolerated go to [facility]. Her significant other at bedside reports that she is also jumping in her sleep. They deny any other symptoms related to this. Plan: Labs, EKG, chest x-ray, urine and COVID/RSV/flu swab. Patient is stable she will be sent back to the waiting room to be evaluated in the ED. <JENNY Longoria - Last Filed: 09/25/22 12:26> Medical Decision Making Medical Decision Making [facility] Narrative: 36-year-old with signs concerning for costochondritis patient had a workup for heart disease including troponin and x-ray to rule out pneumonia. She is nontoxic in appearance do not think she has any concerns for dissection esophageal rupture or pericarditis. Or cardiac tamponade. Since pain is reproducible to the chest I will start the patient with some prednisone to treat costochondritis. I think this will also help her wrist I will give her follow- up with orthopedics for the wrist. <Schuyler Ochoa DO - Last Filed: 09/25/22 13:50> Differential Diagnosis Differential Diagnoses: The differential diagnosis associated with the presentation includes <Schuyler Ochoa DO - Last Filed: 09/25/22 13:50> Carpal tunnel versus ulnar gutter paresthesia, ACS, PE, cardiac tamponade, esophageal rupture, aortic dissection, pneumonia but sounds more like costochondritis. Also flu covid and RSV which were sent and are all negative. <Schuyler Ochoa DO - Last Filed: 09/25/22 13:50> Admission/Observation Consideration of admission/observation: Escalation of care including admission/observation considered <Schuyler Ochoa DO - Last Filed: 09/25/22 13:50> Lab Data Result Diagrams: : 09/25/22 12:41 09/25/22 12:41 <JENNY Longoria - Last Filed: 09/25/22 12:26> Labs: Lab Results 09/25/22 09/25/22 09/25/22 Range/Units 12:41 12:41 12:41 WBC 3.9 L (4.8-10.8) X10*3/uL RBC 3.83 L (4.20-5.50) X10*6/uL Hgb 12.0 (12.0-16.0) g/dl Hct 37.0 (37.0-47.0) % MCV 96.6 (80.0-98.0) fL MCH 31.3 (27.0-33.0) pg MCHC 32.4 (31.0-35.0) g/dl RDW 12.4 (11.0-16.0) % Plt Count 212 (160-400) X10*3/uL MPV 10.4 (9.4-12.3) fL Immature Gran % (Auto) 0.3 (0.0-0.4) % Neut % (Auto) 44.1 L (45-73) % Lymph % (Auto) 41.3 H (20-40) % [place] % (Auto) 7.8 (2-11) % Eos % (Auto) 6.0 H (0-4) % Baso % (Auto) 0.5 (0-2) % Lymph # (Auto) 1.6 (1.2-4.9) X10*3/uL [place] # (Auto) 0.3 (0.1-1.2) X10*3/uL Eos # (Auto) 0.2 (0.0-0.4) X10*3/uL Baso # (Auto) 0.0 (0.0-0.2) X10*3/uL Abs Immat Gran (auto) 0.01 (0.00-0.03) X10*3/uL Absolute Neuts (auto) 1.7 L (2.0-8.3) x10*3/uL Absolute Nucleated RBC 0.000 (0.0-0.012) X10*3/uL Nucleated RBC % (auto) 0.0 (0.0-0.2) /100WBC PT 13.3 H (10.0-13.1) SEC INR 1.2 H (0.9-1.1) Sodium 138 (135-145) mmol/L Potassium 4.0 (3.3-5.1) mmol/L Chloride 109 H (96-108) mmol/L Carbon Dioxide 21 L (22-29) mmol/L Anion Gap 12 (12-20) BUN 9 (9-16) mg/dL Creatinine 0.77 (0.5-1.4) mg/dL Estim Creat Clear Calc 106.8 Estimated GFR > 60 Random Glucose 86 (60-115) mg/dL Calcium 8.8 (8.4-10.2) mg/dL Magnesium 2.0 (1.6-2.6) mg/dL Total Bilirubin 0.5 (0.0-1.0) mg/dL AST 15 (5-31) U/L ALT 10 (0-31) U/L Alkaline Phosphatase 49 (39-117) U/L Troponin I High Sens (<3.5-17.0) ng/L Total Protein 7.0 (6.5-8.0) g/dL Albumin 4.2 (3.5-5.0) g/dL Beta HCG, Quant < 2 mIU/mL Influenza Type A (PCR) (Negative) Influenza Type B (PCR) (Negative) RSV RNA Qual (PCR) (Negative) SARS-CoV-2 RNA (RT-PCR) (Negative) 09/25/22 09/25/22 Range/Units 12:41 12:41 WBC (4.8-10.8) X10*3/uL RBC (4.20-5.50) X10*6/uL Hgb (12.0-16.0) g/dl Hct (37.0-47.0) % MCV (80.0-98.0) fL MCH (27.0-33.0) pg MCHC (31.0-35.0) g/dl RDW (11.0-16.0) % Plt Count (160-400) X10*3/uL MPV (9.4-12.3) fL Immature Gran % (Auto) (0.0-0.4) % Neut % (Auto) (45-73) % Lymph % (Auto) (20-40) % [place] % (Auto) (2-11) % Eos % (Auto) (0-4) % Baso % (Auto) (0-2) % Lymph # (Auto) (1.2-4.9) X10*3/uL [place] # (Auto) (0.1-1.2) X10*3/uL Eos # (Auto) (0.0-0.4) X10*3/uL Baso # (Auto) (0.0-0.2) X10*3/uL Abs Immat Gran (auto) (0.00-0.03) X10*3/uL Absolute Neuts (auto) (2.0-8.3) x10*3/uL Absolute Nucleated RBC (0.0-0.012) X10*3/uL Nucleated RBC % (auto) (0.0-0.2) /100WBC PT (10.0-13.1) SEC INR (0.9-1.1) Sodium (135-145) mmol/L Potassium (3.3-5.1) mmol/L Chloride (96-108) mmol/L Carbon Dioxide (22-29) mmol/L Anion Gap (12-20) BUN (9-16) mg/dL Creatinine (0.5-1.4) mg/dL Estim Creat Clear Calc Estimated GFR Random Glucose (60-115) mg/dL Calcium (8.4-10.2) mg/dL Magnesium (1.6-2.6) mg/dL Total Bilirubin (0.0-1.0) mg/dL AST (5-31) U/L ALT (0-31) U/L Alkaline Phosphatase (39-117) U/L Troponin I High Sens < 3.5 (<3.5-17.0) ng/L Total Protein (6.5-8.0) g/dL Albumin (3.5-5.0) g/dL Beta HCG, Quant mIU/mL Influenza Type A (PCR) NEGATIVE (Negative) Influenza Type B (PCR) NEGATIVE (Negative) RSV RNA Qual (PCR) NEGATIVE (Negative) SARS-CoV-2 RNA (RT-PCR) NEGATIVE (Negative) <JENNY Longoria - Last Filed: 09/25/22 12:26> Lab Results 09/25/22 09/25/22 09/25/22 Range/Units 12:41 12:41 12:41 WBC 3.9 L (4.8-10.8) X10*3/uL RBC 3.83 L (4.20-5.50) X10*6/uL Hgb 12.0 (12.0-16.0) g/dl Hct 37.0 (37.0-47.0) % MCV 96.6 (80.0-98.0) fL MCH 31.3 (27.0-33.0) pg MCHC 32.4 (31.0-35.0) g/dl RDW 12.4 (11.0-16.0) % Plt Count 212 (160-400) X10*3/uL MPV 10.4 (9.4-12.3) fL Immature Gran % (Auto) 0.3 (0.0-0.4) % Neut % (Auto) 44.1 L (45-73) % Lymph % (Auto) 41.3 H (20-40) % [place] % (Auto) 7.8 (2-11) % Eos % (Auto) 6.0 H (0-4) % Baso % (Auto) 0.5 (0-2) % Lymph # (Auto) 1.6 (1.2-4.9) X10*3/uL [place] # (Auto) 0.3 (0.1-1.2) X10*3/uL Eos # (Auto) 0.2 (0.0-0.4) X10*3/uL Baso # (Auto) 0.0 (0.0-0.2) X10*3/uL Abs Immat Gran (auto) 0.01 (0.00-0.03) X10*3/uL Absolute Neuts (auto) 1.7 L (2.0-8.3) x10*3/uL Absolute Nucleated RBC 0.000 (0.0-0.012) X10*3/uL Nucleated RBC % (auto) 0.0 (0.0-0.2) /100WBC PT 13.3 H (10.0-13.1) SEC INR 1.2 H (0.9-1.1) Sodium 138 (135-145) mmol/L Potassium 4.0 (3.3-5.1) mmol/L Chloride 109 H (96-108) mmol/L Carbon Dioxide 21 L (22-29) mmol/L Anion Gap 12 (12-20) BUN 9 (9-16) mg/dL Creatinine 0.77 (0.5-1.4) mg/dL Estim Creat Clear Calc 106.8 Estimated GFR > 60 Random Glucose 86 (60-115) mg/dL Calcium 8.8 (8.4-10.2) mg/dL Magnesium 2.0 (1.6-2.6) mg/dL Total Bilirubin 0.5 (0.0-1.0) mg/dL AST 15 (5-31) U/L ALT 10 (0-31) U/L Alkaline Phosphatase 49 (39-117) U/L Troponin I High Sens (<3.5-17.0) ng/L Total Protein 7.0 (6.5-8.0) g/dL Albumin 4.2 (3.5-5.0) g/dL Beta HCG, Quant < 2 mIU/mL Influenza Type A (PCR) (Negative) Influenza Type B (PCR) (Negative) RSV RNA Qual (PCR) (Negative) SARS-CoV-2 RNA (RT-PCR) (Negative) 09/25/22 09/25/22 Range/Units 12:41 12:41 WBC (4.8-10.8) X10*3/uL RBC (4.20-5.50) X10*6/uL Hgb (12.0-16.0) g/dl Hct (37.0-47.0) % MCV (80.0-98.0) fL MCH (27.0-33.0) pg MCHC (31.0-35.0) g/dl RDW (11.0-16.0) % Plt Count (160-400) X10*3/uL MPV (9.4-12.3) fL Immature Gran % (Auto) (0.0-0.4) % Neut % (Auto) (45-73) % Lymph % (Auto) (20-40) % [place] % (Auto) (2-11) % Eos % (Auto) (0-4) % Baso % (Auto) (0-2) % Lymph # (Auto) (1.2-4.9) X10*3/uL [place] # (Auto) (0.1-1.2) X10*3/uL Eos # (Auto) (0.0-0.4) X10*3/uL Baso # (Auto) (0.0-0.2) X10*3/uL Abs Immat Gran (auto) (0.00-0.03) X10*3/uL Absolute Neuts (auto) (2.0-8.3) x10*3/uL Absolute Nucleated RBC (0.0-0.012) X10*3/uL Nucleated RBC % (auto) (0.0-0.2) /100WBC PT (10.0-13.1) SEC INR (0.9-1.1) Sodium (135-145) mmol/L Potassium (3.3-5.1) mmol/L Chloride (96-108) mmol/L Carbon Dioxide (22-29) mmol/L Anion Gap (12-20) BUN (9-16) mg/dL Creatinine (0.5-1.4) mg/dL Estim Creat Clear Calc Estimated GFR Random Glucose (60-115) mg/dL Calcium (8.4-10.2) mg/dL Magnesium (1.6-2.6) mg/dL Total Bilirubin (0.0-1.0) mg/dL AST (5-31) U/L ALT (0-31) U/L Alkaline Phosphatase (39-117) U/L Troponin I High Sens < 3.5 (<3.5-17.0) ng/L Total Protein (6.5-8.0) g/dL Albumin (3.5-5.0) g/dL Beta HCG, Quant mIU/mL Influenza Type A (PCR) NEGATIVE (Negative) Influenza Type B (PCR) NEGATIVE (Negative) RSV RNA Qual (PCR) NEGATIVE (Negative) SARS-CoV-2 RNA (RT-PCR) NEGATIVE (Negative) <Schuyler Ochoa DO - Last Filed: 09/25/22 13:50> Discharge Plan Discharge Clinical Impression: 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 You also need to follow up with your doctor about your chest. If you have any other concerns please return to the ED. <JENNY Longoria - Last Filed: 09/25/22 12:26> Prescriptions: New prednisone 20 mg tablet 60 mg PO DAILY 5 Days Qty: 15 0RF No Action sumatriptan succinate 25 mg tablet 25 mg PO Q2-4H PRN (Reason: migraine headache) 30 Days Qty: 9 1RF Rx Instructions: do not exceed 8 doses per 24 hrs cholecalciferol (vitamin D3) 50 mcg (2,000 unit) capsule 50 mcg PO DAILY 90 Days Qty: 90 1RF ferrous sulfate 325 mg (65 mg iron) tablet 325 mg PO DAILY Qty: 30 0RF clonidine HCl 0.1 mg tablet 0.1 mg PO DAILY mirtazapine 45 mg tablet 45 mg PO BEDTIME <JENNY Longoria - Last Filed: 09/25/22 12:26> Referrals: Boom Clifton MD [Physician] - (Please call to follow up for your wrist. If you have any other concerns please return to the ED.) <JENNY Longoria - Last Filed: 09/25/22 12:26> Stand Alone Forms: Work/School Release <JENNY Longoria - Last Filed: 09/25/22 12:26>
--- NOTE | 2022-09-25 12:20 | ECG_ITS ---
Test Reason : CHEST PAIN Blood Pressure : / mmHG Vent. Rate : 062 BPM Atrial Rate : 062 BPM P-R Int : 128 ms QRS Dur : 112 ms QT Int : 404 ms P-R-T Axes : 038 065 041 degrees QTc Int : 410 ms Normal sinus rhythm with sinus arrhythmia Incomplete right bundle branch block Borderline ECG When compared with ECG of 23-AUG-2021 17:20, No significant change was found Referred By: Libia Astorga Electronically Signed By:SARAHY AMBRIZ
[2022-09-25 12:46] LABS: MANUAL DIFF FLAG NO
[2022-09-25 12:49] LABS: Basophils Percent Auto 0.5 % (0-2); Eosinophils Absolute Auto 0.2 X10*3/uL (0.0-0.4); Imm Gran Abs Auto 0.01 X10*3/uL (0.00-0.03); Imm Gran Pct Auto 0.3 % (0.0-0.4); Lymphocytes Absolute Auto 1.6 X10*3/uL (1.2-4.9); Lymphocytes Percent Auto 41.3 % (20-40); Mean Corpuscular HGB Conc 32.4 g/dl (31.0-35.0); Mean Corpuscular Hemoglobin 31.3 pg (27.0-33.0); Mean Corpuscular Volume 96.6 fL (80.0-98.0); Mean Platelet Volume 10.4 fL (9.4-12.3); Monocytes Absolute Auto 0.3 X10*3/uL (0.1-1.2); Monocytes Percent Auto 7.8 % (2-11); Neutrophils Absolute Auto 1.7 x10*3/uL (2.0-8.3); Neutrophils Percent Auto 44.1 % (45-73); Platelet Count 212 X10*3/uL (160-400); Red Blood Count 3.83 X10*6/uL (4.20-5.50); Red Cell Distribution Width 12.4 % (11.0-16.0); White Blood Count 3.9 X10*3/uL (4.8-10.8)
[2022-09-25 12:54] LABS: INTERNATIONAL NORM RATIO 1.2 (0.9-1.1); Prothrombin Time 13.3 SEC (10.0-13.1)
[2022-09-25 13:14] LABS: Troponin-I High Sensitivity < 3.5 ng/L (<3.5-17.0)
[2022-09-25 13:16] LABS: Alanine Aminotransferase 10 U/L (0-31); Albumin Level 4.2 g/dL (3.5-5.0); Alkaline Phosphatase 49 U/L (39-117); Anion Gap 12 (12-20); Aspartate Amino Transferase 15 U/L (5-31); Bilirubin Total 0.5 mg/dL (0.0-1.0); Blood Urea Nitrogen 9 mg/dL (9-16); Calcium 8.8 mg/dL (8.4-10.2); Carbon Dioxide 21 mmol/L (22-29); Chloride 109 mmol/L (96-108); Creatinine Clr Calc Pharmacy 106.8; Estimated Glomerular Filt Rate > 60; Glucose Random 86 mg/dL (60-115); HCG Quantitative < 2 mIU/mL; Sodium 138 mmol/L (135-145)
[2022-09-25 13:21] VITALS: PULSE 55; RESP 14; O2SAT 97
[2022-09-25 13:27] LABS: Influenza A PCR NEGATIVE (Negative); Influenza B PCR NEGATIVE (Negative); Resp Syncy Virus RNA Qual PCR NEGATIVE (Negative); SARS COV2 PCR INHOUSE NEGATIVE (Negative)
[2022-09-25] MEDS: predniSONE 20 MG TABLET 60 MG PO (14:27)
== END 2022-09-25 14:30 | disposition home or self-care (01) ==
PROVIDERS: Physician Assistant Medical; Emergency Provider Student in an Organized Health Care Education/Training Program; PCP Internal Medicine
DX: G56.22 Lesion of ulnar nerve, left upper limb (principal); M94.0 Chondrocostal junction syndrome [Tietze]; R07.9 Chest pain, unspecified; Z20.822 Contact with and (suspected) exposure to COVID-19; Z87.891 Personal history of nicotine dependence
CPT/HCPCS: 0241U; 36415; 71046; 80053; 83735; 84484; 84702; 85025; 85610; 93005; 99283; 99285

== ENCOUNTER 2022-09-29 16:48 | Emergency (ER) | payer OTHER, SELFPAY ==
[2022-09-29 17:14] VITALS: BP 111/69; PULSE 76; RESP 18; TEMP 36.8; O2SAT 99; BMI 19.0
--- NOTE | 2022-09-29 19:50 | ED_ITS ---
HPI - Abdominal Pain General Chief Complaint: Abdominal Pain Stated Complaint: pain in ovaries Time Seen by Provider: 09/29/22 19:33 Source: patient and old records reviewed History of Present Illness HPI narrative: Patient presents complaining of 2 days of abdominal pain. Is epigastric as well as lower abdomen. Several episodes of loose stool this morning. No watery diarrhea. Nausea without vomiting No fevers or chills. Mild cough with phlegm History of ovarian cyst but this feels different She is here with her son who has tested positive for influenza A. No urinary symptoms Related Data Home Medications Medication Instructions Recorded Confirmed clonidine HCl 0.1 mg tablet 0.1 mg PO DAILY 10/15/20 10/16/21 mirtazapine 45 mg tablet 45 mg PO BEDTIME 10/15/20 10/16/21 Previous Rx's Medication Instructions Recorded ferrous sulfate 325 mg (65 mg 325 mg PO DAILY #30 tabs 08/23/21 iron) tablet sumatriptan succinate 25 mg tablet 25 mg PO Q2-4H PRN migraine 06/10/22 headache 30 days #9 tabs cholecalciferol (vitamin D3) 50 50 mcg PO DAILY 90 days #90 caps 08/21/22 mcg (2,000 unit) capsule prednisone 20 mg tablet 60 mg PO DAILY Asthma 5 days #15 09/25/22 tabs ondansetron 4 mg disintegrating 4 mg PO Q8H PRN nausea and 09/29/22 tablet vomiting #10 tabs sulfamethoxazole 800 1 tab PO BID #10 tabs 09/29/22 mg-trimethoprim 160 mg tablet (Bactrim DS) Allergies Allergy/AdvReac Type Severity Reaction Status Date / Time meclizine AdvReac Intermediate anxiety Verified 07/29/22 10:02 Review of Systems Comments: No fevers or chills Comments: No chest pain Comments: Mild cough Comments: Abdominal pain is described Comments: No extremity pain Comments: No rash PMFSH Past Medical History Medical History Dizziness Exposure to COVID-19 virus Incomplete right bundle branch block Moderate recurrent major depression Numbness Physical exam Sinus tachycardia Surgical History History of endometrial ablation Family History Family History Mother Diabetes High blood pressure Sciatic nerve disease Father No problems noted. 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 No acute distress vital signs stable afebrile Resp Other: Clear and equal bilaterally without wheezes rales or rhonchi GI Other: Tender right lower quadrant and epigastrium. No guarding or rebound. Abdomen is soft and nondistended. Bowel sounds are normal Skin Other: Warm pink and dry without rash Neuro Other: No gross focal neurologic deficits Course Course Course Narrative: 20:42. Lab work is significant for PCR shows no evidence of COVID or influenza or RSV. Her blood work is normal. Her urinalysis, however, shows possible urinary tract infection. On re- evaluation patient states she has been having burning with urination. This since she is symptomatic, I will prescribe antibiotics, Bactrim. Stable for discharge home with a final diagnosis of urinary tract infection Medical Decision Making Medical Decision Making MDM Narrative: Patient with abdominal pain and mild diarrhea. Exposed influenza A certainly could be a GI presentation. Will rule out pancreatitis and urinary tract infection. Labs and treat symptomatically with ibuprofen and Zofran. Lab Data Result Diagrams: 09/29/22 19:53 09/29/22 19:53 Labs: Lab Results 09/29/22 09/29/22 09/29/22 Range/Units 19:49 19:51 19:53 WBC 6.1 (4.8-10.8) X10*3/uL RBC 3.79 L (4.20-5.50) X10*6/uL Hgb 12.0 (12.0-16.0) g/dl Hct 36.3 L (37.0-47.0) % MCV 95.8 (80.0-98.0) fL MCH 31.7 (27.0-33.0) pg MCHC 33.1 (31.0-35.0) g/dl RDW 12.4 (11.0-16.0) % Plt Count 225 (160-400) X10*3/uL MPV 9.9 (9.4-12.3) fL Immature Gran % (Auto) 0.2 (0.0-0.4) % Neut % (Auto) 53.7 (45-73) % Lymph % (Auto) 34.3 (20-40) % [place] % (Auto) 6.7 (2-11) % Eos % (Auto) 4.8 H (0-4) % Baso % (Auto) 0.3 (0-2) % Lymph # (Auto) 2.1 (1.2-4.9) X10*3/uL [place] # (Auto) 0.4 (0.1-1.2) X10*3/uL Eos # (Auto) 0.3 (0.0-0.4) X10*3/uL Baso # (Auto) 0.0 (0.0-0.2) X10*3/uL Abs Immat Gran (auto) 0.01 (0.00-0.03) X10*3/uL Absolute Neuts (auto) 3.3 (2.0-8.3) x10*3/uL Absolute Nucleated RBC 0.000 (0.0-0.012) X10*3/uL Nucleated RBC % (auto) 0.0 (0.0-0.2) /100WBC Sodium (135-145) mmol/L Potassium (3.3-5.1) mmol/L Chloride (96-108) mmol/L Carbon Dioxide (22-29) mmol/L Anion Gap (12-20) BUN (9-16) mg/dL Creatinine (0.5-1.4) mg/dL Estim Creat Clear Calc Estimated GFR Random Glucose (60-115) mg/dL Calcium (8.4-10.2) mg/dL Total Bilirubin (0.0-1.0) mg/dL AST (5-31) U/L ALT (0-31) U/L Alkaline Phosphatase (39-117) U/L Total Protein (6.5-8.0) g/dL Albumin (3.5-5.0) g/dL Urine Color Yellow Urine Appearance Clear Urine pH 7.5 (5.0-9.0) Ur Specific [place] 1.025 (1.005-1.025) Urine Protein Trace (Neg-Trace) mg/dL Urine Glucose (UA) Negative (Negative) mg/dL Urine Ketones Trace (Negative) mg/dL Urine Blood Trace H (Negative) Urine Nitrite Negative (Negative) Ur Leukocyte Esterase Small (1+) H (Negative) Urine RBC >20 H (0-2) /HPF Urine WBC 11-20 H (0-5) /HPF Ur Squamous Epith Cells 6-10 (0-2) /HPF Urine Bacteria 1+ (None Seen) Hyaline Casts 0-2 (0-2) /LPF Influenza Type A (PCR) NEGATIVE (Negative) Influenza Type B (PCR) NEGATIVE (Negative) RSV RNA Qual (PCR) NEGATIVE (Negative) SARS-CoV-2 RNA (RT-PCR) NEGATIVE (Negative) 09/29/22 Range/Units 19:53 WBC (4.8-10.8) X10*3/uL RBC (4.20-5.50) X10*6/uL Hgb (12.0-16.0) g/dl Hct (37.0-47.0) % MCV (80.0-98.0) fL MCH (27.0-33.0) pg MCHC (31.0-35.0) g/dl RDW (11.0-16.0) % Plt Count (160-400) X10*3/uL MPV (9.4-12.3) fL Immature Gran % (Auto) (0.0-0.4) % Neut % (Auto) (45-73) % Lymph % (Auto) (20-40) % [place] % (Auto) (2-11) % Eos % (Auto) (0-4) % Baso % (Auto) (0-2) % Lymph # (Auto) (1.2-4.9) X10*3/uL [place] # (Auto) (0.1-1.2) X10*3/uL Eos # (Auto) (0.0-0.4) X10*3/uL Baso # (Auto) (0.0-0.2) X10*3/uL Abs Immat Gran (auto) (0.00-0.03) X10*3/uL Absolute Neuts (auto) (2.0-8.3) x10*3/uL Absolute Nucleated RBC (0.0-0.012) X10*3/uL Nucleated RBC % (auto) (0.0-0.2) /100WBC Sodium 138 (135-145) mmol/L Potassium 3.5 (3.3-5.1) mmol/L Chloride 106 (96-108) mmol/L Carbon Dioxide 25 (22-29) mmol/L Anion Gap 11 L (12-20) BUN 12 (9-16) mg/dL Creatinine 0.78 (0.5-1.4) mg/dL Estim Creat Clear Calc 85.9 Estimated GFR > 60 Random Glucose 87 (60-115) mg/dL Calcium 8.9 (8.4-10.2) mg/dL Total Bilirubin 0.4 (0.0-1.0) mg/dL AST 13 (5-31) U/L ALT 9 (0-31) U/L Alkaline Phosphatase 51 (39-117) U/L Total Protein 7.3 (6.5-8.0) g/dL Albumin 4.4 (3.5-5.0) g/dL Urine Color Urine Appearance Urine pH (5.0-9.0) Ur Specific [place] (1.005-1.025) Urine Protein (Neg-Trace) mg/dL Urine Glucose (UA) (Negative) mg/dL Urine Ketones (Negative) mg/dL Urine Blood (Negative) Urine Nitrite (Negative) Ur Leukocyte Esterase (Negative) Urine RBC (0-2) /HPF Urine WBC (0-5) /HPF Ur Squamous Epith Cells (0-2) /HPF Urine Bacteria (None Seen) Hyaline Casts (0-2) /LPF Influenza Type A (PCR) (Negative) Influenza Type B (PCR) (Negative) RSV RNA Qual (PCR) (Negative) SARS-CoV-2 RNA (RT-PCR) (Negative) Discharge Plan Discharge Clinical Impression: Urinary tract infection Patient Disposition: Home, Self-Care Instructions: Urinary Tract Infection in Women (ED) Prescriptions: New sulfamethoxazole-trimethoprim [Bactrim DS] 800-160 mg tablet 1 tab PO BID Qty: 10 0RF ondansetron 4 mg tablet,disintegrating 4 mg PO Q8H PRN (Reason: nausea and vomiting) Qty: 10 0RF No Action sumatriptan succinate 25 mg tablet 25 mg PO Q2-4H PRN (Reason: migraine headache) 30 Days Qty: 9 1RF Rx Instructions: do not exceed 8 doses per 24 hrs cholecalciferol (vitamin D3) 50 mcg (2,000 unit) capsule 50 mcg PO DAILY 90 Days Qty: 90 1RF ferrous sulfate 325 mg (65 mg iron) tablet 325 mg PO DAILY Qty: 30 0RF prednisone 20 mg tablet 60 mg PO DAILY 5 Days Qty: 15 0RF clonidine HCl 0.1 mg tablet 0.1 mg PO DAILY mirtazapine 45 mg tablet 45 mg PO BEDTIME
[2022-09-29 19:59] LABS: Basophils Percent Auto 0.3 % (0-2); Eosinophils Absolute Auto 0.3 X10*3/uL (0.0-0.4); Eosinophils Percent Auto 4.8 % (0-4); Hematocrit 36.3 % (37.0-47.0); Imm Gran Abs Auto 0.01 X10*3/uL (0.00-0.03); Imm Gran Pct Auto 0.2 % (0.0-0.4); Lymphocytes Absolute Auto 2.1 X10*3/uL (1.2-4.9); Lymphocytes Percent Auto 34.3 % (20-40); MANUAL DIFF FLAG NO; Mean Corpuscular HGB Conc 33.1 g/dl (31.0-35.0); Mean Corpuscular Hemoglobin 31.7 pg (27.0-33.0); Mean Corpuscular Volume 95.8 fL (80.0-98.0); Mean Platelet Volume 9.9 fL (9.4-12.3); Monocytes Absolute Auto 0.4 X10*3/uL (0.1-1.2); Monocytes Percent Auto 6.7 % (2-11); Neutrophils Absolute Auto 3.3 x10*3/uL (2.0-8.3); Neutrophils Percent Auto 53.7 % (45-73); Platelet Count 225 X10*3/uL (160-400); Red Blood Count 3.79 X10*6/uL (4.20-5.50); Red Cell Distribution Width 12.4 % (11.0-16.0); White Blood Count 6.1 X10*3/uL (4.8-10.8)
[2022-09-29 20:00] LABS: Appearance Urine Clear; Color Urine Yellow; Glucose Urine UA Negative (Negative); Leukocyte Esterase Urine Small (1+) (Negative); Nitrite Urine Negative (Negative); PH 7.5 (5.0-9.0); Specific Gravity - Urine 1.025 (1.005-1.025); UMIC TRIGGER UACC YES; Urine Blood Trace (Negative); Urine Ketones Trace mg/dL (Negative); Urine Protein Trace mg/dL (Neg-Trace)
[2022-09-29 20:03] LABS: Bacteria Urine 1+ (None Seen); Hyaline Casts Urine 0-2 /LPF (0-2); RBC Urine >20 /HPF (0-2); UACC Culture Trigger YES
[2022-09-29 20:24] LABS: Alanine Aminotransferase 9 U/L (0-31); Albumin Level 4.4 g/dL (3.5-5.0); Alkaline Phosphatase 51 U/L (39-117); Anion Gap 11 (12-20); Aspartate Amino Transferase 13 U/L (5-31); Bilirubin Total 0.4 mg/dL (0.0-1.0); Blood Urea Nitrogen 12 mg/dL (9-16); Calcium 8.9 mg/dL (8.4-10.2); Carbon Dioxide 25 mmol/L (22-29); Chloride 106 mmol/L (96-108); Creatinine Clr Calc Pharmacy 85.9; Estimated Glomerular Filt Rate > 60; Glucose Random 87 mg/dL (60-115); Potassium 3.5 mmol/L (3.3-5.1); Sodium 138 mmol/L (135-145); Total Protein 7.3 g/dL (6.5-8.0)
[2022-09-29 20:36] LABS: Influenza A PCR NEGATIVE (Negative); Influenza B PCR NEGATIVE (Negative); Resp Syncy Virus RNA Qual PCR NEGATIVE (Negative); SARS COV2 PCR INHOUSE NEGATIVE (Negative)
[2022-09-29] MEDS: Ibuprofen 600 MG TABLET PO (20:40)
[2022-09-29] MEDS: Ondansetron ODT 4 MG TAB.RAPDIS TRANSLINGU (20:40)
== END 2022-09-29 21:27 | disposition home or self-care (01) ==
PROVIDERS: Emergency Provider Emergency Medicine; PCP Internal Medicine
DX: N39.0 Urinary tract infection, site not specified (principal); B96.89 Other specified bacterial agents as the cause of diseases classified elsewhere; Z20.822 Contact with and (suspected) exposure to COVID-19
CPT/HCPCS: 0241U; 80053; 81001; 81003; 85025; 87086; 87088; 87186; 99283

== ENCOUNTER 2022-10-26 10:34 | Emergency (ER) | payer OTHER, SELFPAY ==
--- NOTE | ~2022-10-26 | XR_ITS ---
EXAMINATION: XR CHEST CLINICAL INFORMATION: Shortness of breath COMPARISON: 09/25/2022 TECHNIQUE: Frontal view of the chest was obtained. FINDINGS: No significant abnormality is noted involving the heart, lungs, mediastinum, bony thorax or soft tissues. XR/XR chest 1V IMPRESSION: Unremarkable examination.
[2022-10-26 11:05] VITALS: BP 129/75; PULSE 84; RESP 18; TEMP 36.6; O2SAT 100; BMI 17.4
--- NOTE | 2022-10-26 11:14 | ED_ITS ---
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 Patient states that one of her children has the flu and since then she has been feeling unwell. Patient denies any dizziness, lightheadedness, abdominal pain, nausea, vomiting, fever, chills, blurry vision, double vision, loss of vision, chest pain, difficulty breathing, shortness of breath, back pain, night sweats, pain with urination, increased urinary frequency, increased urinary urgency, blood in her urine or stool, syncope or a near syncopal episode, recent trauma or falls, bowel incontinence, bladder incontinence, bowel retention, bladder retention, or any other complaints at this time. Onset (ago): day(s) Severity: mild Severity scale (1-10): 1 Relieving factors: none Exacerbating factors: none Associated symptoms: denies other symptoms Treatments prior to arrival: none Related Data Home Medications Medication Instructions Recorded Confirmed clonidine HCl 0.1 mg tablet 0.1 mg PO DAILY 10/15/20 10/13/22 mirtazapine 45 mg tablet 45 mg PO BEDTIME 10/15/20 10/13/22 Previous Rx's Medication Instructions Recorded ferrous sulfate 325 mg (65 mg 325 mg PO DAILY #30 tabs 08/23/21 iron) tablet sumatriptan succinate 25 mg tablet 25 mg PO Q2-4H PRN migraine 06/10/22 headache 30 days #9 tabs cholecalciferol (vitamin D3) 50 50 mcg PO DAILY 90 days #90 caps 08/21/22 mcg (2,000 unit) capsule ondansetron 4 mg disintegrating 4 mg PO Q8H PRN nausea and 09/29/22 tablet vomiting #10 tabs sulfamethoxazole 800 1 tab PO BID #10 tabs 09/29/22 mg-trimethoprim 160 mg tablet (Bactrim DS) cyclobenzaprine 5 mg tablet 5 mg PO BID PRN muscle spasm #14 10/13/22 tabs Allergies Allergy/AdvReac Type Severity Reaction Status Date / Time meclizine AdvReac Intermediate anxiety Verified 10/13/22 10:55 Review of Systems Constitutional: Constitutional: Reports no additional constitutional complaints, Denies chills, Denies fever(s), Reports headache(s) and Denies night sweats Eyes: Eyes: Reports no additional eye complaints, Denies blurry vision, Denies change in vision, Denies diplopia, Denies eye discharge, Denies loss of vision and Denies eye pain ENT: Denies dizziness and Reports headache(s) Cardiovascular: Cardiovascular: Reports no additional cardiovascular complaints, Denies chest pain, Denies lightheadedness, Denies Loss of Consciousness and Denies dyspnea Respiratory: Respiratory: Reports no additional respiratory complaints and Denies dyspnea Gastrointestinal: Gastrointestinal: Reports no additional gastrointestinal complaints, Denies abdominal pain, Denies melena, Denies hematochezia, Denies change in bowel habits and Denies change in stool character Genitourinary: Genitourinary: Denies hematuria, Denies urinary frequency, Denies dysuria, Denies urinary incontinence, Denies urinary hesitancy and Denies urinary urgency Musculoskeletal: Musculoskeletal: Reports no additional musculoskeletal complaints, Denies numbness and Denies tingling Neurologic: Denies dizziness, Reports headache(s), Denies loss of vision, Denies numbness and Denies tingling Psychiatric: Psychiatric: Reports no additional psychiatric complaints Endocrine: Endocrine: Reports no additional endocrine complaints Hematologic/Lymphatic: Hematologic/Lymphatic: Reports no additional hematologic/lymphatic complaints Allergic/Immunologic: Allergic/Immunologic: Reports no additional allergic/immunologic complaints [facility] Past Medical History Attestation statement: The following information was validated with the patient. Source: old records reviewed and nursing notes reviewed Medical History Dizziness Exposure to COVID-19 virus Incomplete right bundle branch block Moderate recurrent major depression Numbness Physical exam Sinus tachycardia Surgical History History of endometrial ablation Family History Family History Mother Diabetes High blood pressure Sciatic nerve disease Father No problems noted. 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 Cognitive needs: No Hearing needs: No Vision needs: No Physical Exam ED Vital Signs: Vital Signs - 24 hr 10/26/22 11:05 10/26/22 11:21 Temperature 97.8 F 98.1 F Pulse Rate 84 80 Respiratory Rate 18 Blood Pressure 129/75 114/74 Pulse Oximetry 100 98 Oxygen Delivery Method Room Air BMI result Body Mass Index 17.4 Const General: cooperative, no acute distress, alert and awake Nutritional Appearance: well nourished Orientation/consciousness: patient oriented x3 Limitations: no limitations HENMT Head: Yes normal to inspection and Yes atraumatic Ears: hearing grossly normal bilaterally and external ears normal General nose exam: Normal external nose present, no nasal discharge noted and no epistaxis Face and sinus: Yes normal facial exam, No abrasion and No laceration Mouth: Normal oral and palatal mucosa present, no drooling and no muffled voice Eyes General: appearance normal, both eyes and all related structures Periorbital: periorbital findings normal Eyelids: Yes eyelids normal Conjunctivae: conjunctivae normal Pupils: Equal, round and reactive pupils present EOM: EOMs intact bilaterally Neck Neck: Yes normal visual inspection, Yes full ROM and Yes no lymphadenopathy Chest Chest palpation & inspection: normal inspection of the chest Resp Effort & Inspection: normal respiratory effort and able to speak in complete sentences Auscultation: clear to auscultation bilaterally Cardio Rate: regular rate Rhythm: regular rhythm GI Inspection: Yes normal to inspection Palpation (GI): Soft to palpation, not firm, nontender, no guarding and not rigid Neuro General: patient oriented x3 and moves all extremities Cranial nerves: Yes Equal, round and reactive pupils present Cognition (Neuro): normal cognition Motor exam (neuro): 5/5 motor strength present throughout Sensory Exam: Normal double simultaneous stimulation for sensation Coordination: [id number] test normal Extrem General: Yes normal to inspection, Yes full ROM and Yes capillary refill normal Psych Appearance: grossly normal Mental Status: mental status grossly normal Affect: normal affect Attitude: cooperative Thought process: Normal thought process present Thought content: Normal thought content present Insight: Good insight present (Psych) Medical Decision Making Medical Decision Making MDM Narrative: Patient is a 36 year old assigned female at with no reported medical history presenting to the emergency department today with a headache. Patient's physical exam was unremarkable. Patient's chest x-ray showed no acute process. Patient's RSV/Influenza/COVID swab was negative. I explained my physical exam findings as well as all test results to the patient. I answered all questions asked by the patient. I stressed the importance of the patient taking her medication as prescribed. I stressed the importance of the patient following up with her primary care provider. I stressed the importance of the patient returning to the emergency department immediately if her symptoms were to worsen or if she were to develop any dizziness, shortness of breath, difficulty breathing, chest pain, blurry vision, loss of vision, nausea, vomiting, abdominal pain, fever, chills, back pain, or any other complaints. Patient verbalized agreement and understanding with this treatment plan and discharge. Differential Diagnosis Differential Diagnoses: The differential diagnosis associated with the presentation includes viral illness Lab Data MDM Lab Attestation statement: I reviewed the patient's lab results. Labs: Lab Results 10/26/22 Range/Units 11:10 Influenza Type A (PCR) NEGATIVE (Negative) Influenza Type B (PCR) NEGATIVE (Negative) RSV RNA Qual (PCR) NEGATIVE (Negative) SARS-CoV-2 RNA (RT-PCR) NEGATIVE (Negative) Radiology Impression Discussion of test interpretation with radiology: I have reviewed the radiolo gist's reading. Radiologist Impression: My interpretation is in agreement with the radiologist's impression of this imaging study. EXAMINATION: XR CHEST CLINICAL INFORMATION: Shortness of breath COMPARISON: 09/25/2022 TECHNIQUE: Frontal view of the chest was obtained. FINDINGS: No significant abnormality is noted involving the heart, lungs, mediastinum, bony thorax or soft tissues. XR/XR chest 1V IMPRESSION: Unremarkable examination. Dictated By: Braydon Reyes MD Signed By: Electronically signed by Braydon Reyes MD 10/26/22 3059 Discharge Plan Discharge Clinical Impression: Viral illness Patient Disposition: Home, Self-Care Instructions: Viral Syndrome (ED) Additional Instructions: Follow up with your primary care provider. Return to the emergency department immediately if your symptoms worsen or if you develop any dizziness, shortness of breath, difficulty breathing, chest pain, blurry vision, loss of vision, nausea, vomiting, abdominal pain, fever, chills, back pain, or any other complaints. Malathi un seguimiento con vazquez proveedor de atenci?n primaria. Regrese al departamento de emergencias de inmediato si juliet s?ntomas empeoran o si presenta mareos, falta de aire, dificultad para respirar, dolor de pecho, visi?n borrosa, p?rdida de la visi?n, n?useas, v?mitos, dolor abdominal, fiebre, escalofr?os, dolor de espalda o cualquier otras quejas. Prescriptions: No Action sumatriptan succinate 25 mg tablet 25 mg PO Q2-4H PRN (Reason: migraine headache) 30 Days Qty: 9 1RF Rx Instructions: do not exceed 8 doses per 24 hrs cholecalciferol (vitamin D3) 50 mcg (2,000 unit) capsule 50 mcg PO DAILY 90 Days Qty: 90 1RF ferrous sulfate 325 mg (65 mg iron) tablet 325 mg PO DAILY Qty: 30 0RF sulfamethoxazole-trimethoprim [Bactrim DS] 800-160 mg tablet 1 tab PO BID Qty: 10 0RF ondansetron 4 mg tablet,disintegrating 4 mg PO Q8H PRN (Reason: nausea and vomiting) Qty: 10 0RF clonidine HCl 0.1 mg tablet 0.1 mg PO DAILY mirtazapine 45 mg tablet 45 mg PO BEDTIME cyclobenzaprine 5 mg tablet 5 mg PO BID PRN (Reason: muscle spasm) Qty: 14 0RF Referrals: Carolina Herrera MD [Primary Care Provider] - Stand Alone Forms: Work/School Release Interventions: ED Discharge Assessment Last Done: 10/26/22 12:21 Discharge Date/Time: 10/26/22 12:22 Print Language: Malian
[2022-10-26 11:21] VITALS: BP 114/74; PULSE 80; TEMP 36.7; O2SAT 98
[2022-10-26 11:57] LABS: Influenza A PCR NEGATIVE (Negative); Influenza B PCR NEGATIVE (Negative); Resp Syncy Virus RNA Qual PCR NEGATIVE (Negative); SARS COV2 PCR INHOUSE NEGATIVE (Negative)
== END 2022-10-26 12:22 | disposition home or self-care (01) ==
PROVIDERS: Physician Assistant Medical; Emergency Provider Emergency Medicine; PCP Internal Medicine
DX: B34.9 Viral infection, unspecified (principal); R51.9 Headache, unspecified; Z20.822 Contact with and (suspected) exposure to COVID-19; Z20.828 Contact with and (suspected) exposure to other viral communicable diseases; I45.10 Unspecified right bundle-branch block
CPT/HCPCS: 0241U; 71045; 99282; 99283

== ENCOUNTER 2022-12-02 13:30 | Outpatient (RCR) | payer OTHER, SELFPAY ==
--- NOTE | 2022-12-02 14:03 | MHC.OT.DC ---
[address] [phone] F: [phone] Occupational Therapy Discharge Note Provider: Dr Carolina Candelaria Diagnosis: Pain in left hand Date of Evaluation: 11/06/22 Date of Discharge: 12/02/22 Treatments to Date: 2 Cancellations to Date: No Shows to Date: 4 Discharge Status: Patient Elected to Stop Visit Non-compliance Discharge Summary: Yelena was referred to OT for hand pain, had one follow up appt and reported less pain in neck/shoulder, but still w/ left D5-D4 numbness. She has missed the last four appointments and we will be discharging from therapy per no-show policy. Electronically Signed By: Irma Pizarro OTR/Miguel CHT Reviewed/agree with student documentation: Therapist: Please Sign and return to therapist, thank you for your referral.
== END 2022-12-02 14:04 | disposition home or self-care (01) ==
LOC: HO.OT 13:30
PROVIDERS: PCP Internal Medicine; Visit Provider Internal Medicine
DX: M79.645 Pain in left finger(s) (principal)
CPT/HCPCS: 97110; 97140; 97165

== ENCOUNTER 2022-12-10 12:28 | Outpatient (REF) | payer OTHER, SELFPAY | END 2022-12-10 12:29 | disposition home or self-care (01) | LOC: HO.HOSX 12:28 | PROVIDERS: Visit Provider Physician Assistant | DX: Z13.89 Encounter for screening for other disorder (principal) ==

== ENCOUNTER 2023-01-15 08:33 | Outpatient (REF) | payer OTHER, SELFPAY | END 2023-01-15 08:34 | disposition home or self-care (01) | LOC: HO.HOSX 08:33 | PROVIDERS: Visit Provider Physician Assistant | DX: Z13.89 Encounter for screening for other disorder (principal) ==

== ENCOUNTER 2023-02-27 21:01 | Inpatient (IN) | payer OTHER, SELFPAY ==
--- NOTE | ~2023-02-27 | CT_ITS ---
EXAMINATION: CT ABDOMEN AND PELVIS WITH CONTRAST CLINICAL INFORMATION: Lower abdominal pain COMPARISON: None available. TECHNIQUE: Multidetector volumetric images were obtained from the superior aspect of the liver through the pubic symphysis following administration 85 mL of Omnipaque 350 intravenous contrast. Sagittal and coronal reformatted images were obtained on the technologist's workstation. Oral contrast: No This CT examination was performed using dose optimization techniques as appropriate, variously including the following: *Automated exposure control *Adjustment of mA and/or kV according to patient size (this includes techniques or standardized protocols for targeted exams where dose is matched to indication/reason for exam; i.e. extremities or head) *Use of iterative reconstruction technique DLP: 205 mGy-cm FINDINGS: LUNG BASES: The visualized lung bases are unremarkable. LIVER, GALLBLADDER, AND BILIARY TREE: The liver is normal in size, shape, and attenuation. No focal hepatic lesion or biliary ductal dilatation is present. The gallbladder is unremarkable with no evidence of radiopaque gallstones, gallbladder wall thickening, or obvious pericholecystic inflammatory changes. PANCREAS: Unremarkable. SPLEEN: Unremarkable. ADRENAL GLANDS: Unremarkable. KIDNEYS AND URETERS: The kidneys are normal in size, shape, and attenuation. No hydronephrosis, hydroureter, or calculi seen. No perinephric stranding. BLADDER: Unremarkable. GASTROINTESTINAL TRACT: The appendix is dilated, thick walled and hyperemic, with surrounding periappendiceal inflammatory changes compatible with acute appendicitis. No evidence of rupture or abscess formation. ABDOMINAL WALL: No significant hernia is appreciated. LYMPH NODES: Normal. VASCULAR: There is mild compression of the left renal vein as it courses subjacent to the superior mesenteric artery. Associated with this is dilatation of the left gonadal vein and left periuterine vessels. Patent venous structures. PELVIC VISCERA: Unremarkable. OSSEOUS STRUCTURES: Unremarkable. CT/CT abdomen pelvis w IV con IMPRESSION: * Acute uncomplicated appendicitis. * Incidental finding of dilatation of the left gonadal vein, possibly related to compression of the left renal vein as it courses subjacent to the superior mesenteric artery. Nonemergent, outpatient clinical correlation recommended for both nutcracker and pelvic venous congestion syndrome.
[2023-02-27 21:07] VITALS: BP 124/88; PULSE 101; RESP 18; TEMP 37.1; O2SAT 100; BMI 15.1
[2023-02-27 21:34] LABS: MANUAL DIFF FLAG NO
[2023-02-27 21:56] LABS: Alanine Aminotransferase 11 U/L (0-31); Albumin Level 4.3 g/dL (3.5-5.0); Alkaline Phosphatase 44 U/L (39-117); Anion Gap 10 (12-20); Aspartate Amino Transferase 15 U/L (5-31); Bilirubin Total 0.9 mg/dL (0.0-1.0); Blood Urea Nitrogen 9 mg/dL (9-16); Calcium 9.1 mg/dL (8.4-10.2); Carbon Dioxide 22 mmol/L (22-29); Chloride 108 mmol/L (96-108); Creatinine Clr Calc Pharmacy 73.1; Estimated Glomerular Filt Rate > 60; Glucose Random 100 mg/dL (60-115); HCG Quantitative < 2 mIU/mL; Magnesium 1.6 mg/dL (1.6-2.6); Potassium 3.4 mmol/L (3.3-5.1); Sodium 137 mmol/L (135-145)
[2023-02-27 21:57] LABS: Basophils Percent Auto 0.1 % (0-2); Eosinophils Percent Auto 0.3 % (0-4); Hematocrit 36.2 % (37.0-47.0); Hemoglobin 12.2 g/dl (12.0-16.0); Imm Gran Pct Auto 1.1 % (0.0-0.4); Lymphocytes Absolute Auto 0.9 X10*3/uL (1.2-4.9); Lymphocytes Percent Auto 9.7 % (20-40); Mean Corpuscular HGB Conc 33.7 g/dl (31.0-35.0); Mean Corpuscular Hemoglobin 31.8 pg (27.0-33.0); Mean Corpuscular Volume 94.3 fL (80.0-98.0); Mean Platelet Volume 10.8 fL (9.4-12.3); Monocytes Absolute Auto 0.3 X10*3/uL (0.1-1.2); Monocytes Percent Auto 3.6 % (2-11); Neutrophils Absolute Auto 7.9 x10*3/uL (2.0-8.3); Neutrophils Percent Auto 85.2 % (45-73); Platelet Count 183 X10*3/uL (160-400); Red Blood Count 3.84 X10*6/uL (4.20-5.50); Red Cell Distribution Width 12.7 % (11.0-16.0); White Blood Count 9.3 X10*3/uL (4.8-10.8)
[2023-02-27 23:20] VITALS: BP 96/58; PULSE 75; RESP 16; TEMP 36.9; O2SAT 96
--- NOTE | 2023-02-27 23:30 | ED_ITS ---
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 She states that her pain initially on left but is not radiating to the right She had diarrhea 3 days ago and nausea yesterday Denies any vomiting. Patient reports 2 previous C-sections but no other abdominal surgeries Denies any fevers or chills. She states that is she has a history of ?ovarian cysts. ? Her pain is reminiscent of her previous ovarian cysts. States that she has not had her menstrual cycle since 2018. She states a history of endometriosis and ?it I had an ablation. ? Patient states that the procedure was supposed to last for 5 years and she was told she should expect to get her menstrual cycle again starting in July Patient reports that she is sexually active with only 1 partner is not concerned for sexually transmitted infections Related Data Home Medications Medication Instructions Recorded Confirmed clonidine HCl 0.1 mg tablet 0.1 mg PO DAILY 10/15/20 11/24/22 mirtazapine 45 mg tablet 45 mg PO BEDTIME 10/15/20 11/24/22 Previous Rx's Medication Instructions Recorded cholecalciferol (vitamin D3) 50 50 mcg PO DAILY 90 days #90 caps 08/21/22 mcg (2,000 unit) capsule ondansetron 4 mg disintegrating 4 mg PO Q8H PRN nausea and 09/29/22 tablet vomiting #10 tabs sumatriptan succinate 25 mg tablet 25 mg PO ONCE PRN migraine 02/22/23 headache 30 days #9 tabs Allergies Allergy/AdvReac Type Severity Reaction Status Date / Time meclizine AdvReac Intermediate anxiety Verified 02/27/23 21:06 Review of Systems Constitutional: Constitutional: Reports as per HPI, Denies chills, Denies fatigue, Denies fever(s) and Denies headache(s) ENT: Denies headache(s) Cardiovascular: Cardiovascular: Denies chest pain and Denies dyspnea Respiratory: Respiratory: Denies cough and Denies dyspnea Gastrointestinal: Gastrointestinal: Reports abdominal pain, Denies constipation, Reports diarrhea, Reports nausea and Denies vomiting Genitourinary: Genitourinary: Denies menorrhagia, Denies dysuria and Denies vaginal discharge Neurologic: Denies headache(s) and Denies focal weakness Endocrine: Endocrine: Denies fatigue PMFSH Past Medical History Medical History Dizziness Exposure to COVID-19 virus Incomplete right bundle branch block Moderate recurrent major depression Numbness Physical exam Sinus tachycardia Surgical History History of endometrial ablation Family History Family History (Updated 11/24/22 @ 09:34 by Carolina Candelaria MD) Mother Diabetes High blood pressure Sciatic nerve disease Father High blood pressure Asthma Social History Social History Housing: Apartment Alcohol intake: current Alcohol intake frequency: holidays/special occasions only Patient Tobacco Use Status: Current everyday Tobacco user Tobacco use type: Cigarette Cigarette Packs Per Day: 1 Smoked in Last 30 Days: Yes e-Cigarette/Vaping Use: Never Used Second Hand Smoke Exposure: No Use of substances other than those prescribed or required for medical reasons: No Advance Directives: No Advance Directives Information Provided: No service: No Current occupational status: employed 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 Current occupational exposures/hazards: No Cognitive needs: No Hearing needs: No Vision needs: No Physical Exam ED Vital Signs: Vital Signs - 24 hr 02/27/23 21:07 02/27/23 23:20 Temperature 98.7 F 98.4 F Pulse Rate 101 H 75 Respiratory Rate 18 16 Blood Pressure 124/88 96/58 L Pulse Oximetry 100 96 Oxygen Delivery Method Room Air Room Air BMI result Body Mass Index 15.1 Const General: healthy appearing, comfortable, no acute distress, alert and awake Nutritional Appearance: well nourished Orientation/consciousness: patient oriented x3 HENMT Head: Yes normocephalic and Yes atraumatic Eyes Eyelids: Yes eyelids normal Conjunctivae: conjunctivae normal Sclerae: sclerae normal Corneas: corneas normal Pupils: Equal, round and reactive pupils present EOM: EOMs intact bilaterally Neck Neck: Yes full ROM Resp Effort & Inspection: normal respiratory effort, able to speak in complete sentences and not labored Cardio Rate: regular rate Rhythm: regular rhythm GI Inspection: No distended Palpation (GI): Soft to palpation, not firm, nontender, no guarding and not rigid Auscultation: normoactive bowel sounds Skin General skin exam: no rashes or lesions noted and elasticity normal Neuro General: patient oriented x3 Cranial nerves: Yes Equal, round and reactive pupils present and Yes Bilaterally intact EOM present Cognition (Neuro): normal cognition Extrem Other: Moving all extremities well without any obvious deformities Course Reevaluation(s) Reevaluation #1: Patient's labs have no significant abnormalities, her CT scan did results showing acute uncomplicated appendicitis. I treated with IV Zosyn. I ordered blood cultures, lactic acid and leydi surgical labs. I attend message to Dr. Nicole, general surgery. I discussed with the patient to explain her results and that she would need surgery to remove her appendix. I instructed her not to eat or drink anything. All of her questions were answered Time: 01:40 Medications Administered Discontinued Medications Generic Name Dose Route Start Last Admin Trade Name Jimi PRN Reason Stop Dose Admin Sodium Chloride 1,000 mls @ 999 mls/hr 02/27/23 23:30 02/28/23 00:42 Ns IV 02/28/23 00:30 Infused .Q1H1M DYLAN Infusion Iohexol 85 ml 02/27/23 23:57 02/27/23 23:58 Iohexol 350 Mg/Ml 100 Ml Infus..Btl IV 02/27/23 23:58 85 ml ONCE ONE Administration Ketorolac Tromethamine 30 mg 02/27/23 23:26 02/27/23 23:35 Ketorolac Tromethamine 30 Mg/Ml Vial IVPUSH 02/27/23 23:27 30 mg ONCE ONE Administration Morphine Sulfate 2 mg 02/28/23 00:40 02/28/23 01:03 Morphine Sulfate 2 Mg/Ml Cartridge IVPUSH 02/28/23 00:41 2 mg ONCE ONE Administration Protocol Ondansetron HCl 4 mg 02/28/23 00:40 02/28/23 01:03 Ondansetron Hcl 4 Mg/2 Ml Vial IVPUSH 02/28/23 00:41 4 mg ONCE ONE Administration Medical Decision Making Medical Decision Making MDM Narrative: 37-year-old female presents for evaluation of lower abdominal pain with nausea and diarrhea. Has a broad differential this time. The patient is not . Her labs are reassuring. I have a lower suspicion for ovarian torsion as her pain was initially on the left and is now on the right. Given her level discomfort with a CT scan to evaluate for acute appendicitis. Will treat the patient's all and IV fluids. UA is still pending. Differential Diagnosis Ectopic Ovarian cyst Ovarian torsion UTI Pyelonephritis Obstructive uropathy Gastroenteritis Acute appendicitis Lab Data MDM Lab Attestation statement: I reviewed the patient's lab results. 02/27/23 21:31 02/27/23 21:31 Labs: Lab Results 02/27/23 02/27/23 02/27/23 Range/Units 21:31 21:31 23:35 WBC 9.3 (4.8-10.8) X10*3/uL RBC 3.84 L (4.20-5.50) X10*6/uL Hgb 12.2 (12.0-16.0) g/dl Hct 36.2 L (37.0-47.0) % MCV 94.3 (80.0-98.0) fL MCH 31.8 (27.0-33.0) pg MCHC 33.7 (31.0-35.0) g/dl RDW 12.7 (11.0-16.0) % Plt Count 183 (160-400) X10*3/uL MPV 10.8 (9.4-12.3) fL Immature Gran % (Auto) 1.1 H (0.0-0.4) % Neut % (Auto) 85.2 H (45-73) % Lymph % (Auto) 9.7 L (20-40) % [place] % (Auto) 3.6 (2-11) % Eos % (Auto) 0.3 (0-4) % Baso % (Auto) 0.1 (0-2) % Lymph # (Auto) 0.9 L (1.2-4.9) X10*3/uL [place] # (Auto) 0.3 (0.1-1.2) X10*3/uL Eos # (Auto) 0.0 (0.0-0.4) X10*3/uL Baso # (Auto) 0.0 (0.0-0.2) X10*3/uL Abs Immat Gran (auto) 0.10 H (0.00-0.03) X10*3/uL Absolute Neuts (auto) 7.9 (2.0-8.3) x10*3/uL Absolute Nucleated RBC 0.000 (0.0-0.012) X10*3/uL Nucleated RBC % (auto) 0.0 (0.0-0.2) /100WBC Sodium 137 (135-145) mmol/L Potassium 3.4 (3.3-5.1) mmol/L Chloride 108 (96-108) mmol/L Carbon Dioxide 22 (22-29) mmol/L Anion Gap 10 L (12-20) BUN 9 (9-16) mg/dL Creatinine 0.72 (0.5-1.4) mg/dL Estim Creat Clear Calc 73.1 Estimated GFR > 60 Random Glucose 100 (60-115) mg/dL Calcium 9.1 (8.4-10.2) mg/dL Magnesium 1.6 (1.6-2.6) mg/dL Total Bilirubin 0.9 (0.0-1.0) mg/dL AST 15 (5-31) U/L ALT 11 (0-31) U/L Alkaline Phosphatase 44 (39-117) U/L Total Protein 7.0 (6.5-8.0) g/dL Albumin 4.3 (3.5-5.0) g/dL Beta HCG, Quant < 2 mIU/mL Urine Color Dark Yellow Urine Appearance Cloudy Urine pH >= 9.0 (5.0-9.0) Ur Specific [place] >= 1.030 H (1.005-1.025) Urine Protein 100 (2+) H (Neg-Trace) mg/dL Urine Glucose (UA) Negative (Negative) mg/dL Urine Ketones Trace (Negative) mg/dL Urine Blood Negative (Negative) Urine Nitrite Negative (Negative) Ur Leukocyte Esterase Trace H (Negative) Urine RBC 3-5 H (0-2) /HPF Urine WBC 0-5 (0-5) /HPF Ur Squamous Epith Cells 3-5 (0-2) /HPF Urine Bacteria Trace (None Seen) Hyaline Casts 0-2 (0-2) /LPF Discharge Plan Discharge Clinical Impression: Acute appendicitis Patient Disposition: Admitted As Inpatient Prescriptions: No Action cholecalciferol (vitamin D3) 50 mcg (2,000 unit) capsule 50 mcg PO DAILY 90 Days Qty: 90 1RF sumatriptan succinate 25 mg tablet 25 mg PO ONCE PRN (Reason: migraine headache) 30 Days Qty: 9 1RF Rx Instructions: do not exceed 8 doses per 24 hrs ondansetron 4 mg tablet,disintegrating 4 mg PO Q8H PRN (Reason: nausea and vomiting) Qty: 10 0RF clonidine HCl 0.1 mg tablet 0.1 mg PO DAILY mirtazapine 45 mg tablet 45 mg PO BEDTIME
[2023-02-27] MEDS: Ketorolac Tromethamine 30 MG/ML VIAL IVPUSH (23:35)
[2023-02-27] MEDS: 0.9 % Sodium Chloride 1,000 ML 999 ML IV (23:37)
[2023-02-27 23:43] LABS: Appearance Urine Cloudy; Color Urine Dark Yellow; Glucose Urine UA Negative (Negative); Leukocyte Esterase Urine Trace (Negative); Nitrite Urine Negative (Negative); PH >= 9.0 (5.0-9.0); Specific Gravity - Urine >= 1.030 (1.005-1.025); UMIC TRIGGER UACC YES; Urine Blood Negative (Negative); Urine Ketones Trace mg/dL (Negative); Urine Protein 100 (2+) mg/dL (Neg-Trace)
[2023-02-27 23:57] LABS: Bacteria Urine Trace (None Seen); Hyaline Casts Urine 0-2 /LPF (0-2); WBC Urine 0-5 /HPF (0-5)
[2023-02-27] MEDS: iohexoL 350 MG/ML 100 ML INFUS..BTL 85 ML IV (23:58)
[2023-02-28] VITALS (12 sets, daily range): BP systolic 95–132; BP diastolic 55–85; PULSE 48–95; RESP 15–18; TEMP 36.2–36.9; O2SAT 98–100
[2023-02-28] MEDS: Morphine Sulfate 2 MG/ML CARTRIDGE IVPUSH ×4 (01:03→22:08)
[2023-02-28] MEDS: ondansetron HCL 4 MG/2 ML VIAL IVPUSH ×2 (01:03→14:56)
--- NOTE | 2023-02-28 01:09 | PC.NURSE ---
late entry: 20g IV placed in LAC, all medications administered per DEC. Pt is resting on stretcher with family member at this time. Pt reports minimal relief from first dose of pain medications
[2023-02-28 02:03] LABS: INTERNATIONAL NORM RATIO 1.3 (0.9-1.1); Prothrombin Time 15.6 SEC (10.0-13.1)
[2023-02-28 02:05] LABS: Partial Thromboplastin Time 34.4 SEC (26.0-36.4)
[2023-02-28 02:09] LABS: Lactic Acid 0.6 mmol/L (0.5-2.0)
[2023-02-28] MEDS: Piperacillin Sodium/Tazobactam 3.375 GM in 0.9 % Sodium Chloride 50 ML IV ×4 (02:11→20:00)
[2023-02-28] MEDS: Dextrose 5 % and 0.9 % NaCl 1,000 ML 80 ML IVCONT ×2 (02:11→19:44)
[2023-02-28 02:13] LABS: COVID-19 Test Negative (Negative); IDNOW Serial# 6674DD1D
--- NOTE | 2023-02-28 08:50 | PHA.MEDREC ---
Pharmacy Consult ? Medication Reconciliation Pharmacy has completed the medication reconciliation. Spoke to patient to confirm meds. Patient fills at [facility]. Patient states they take mirtazapine and clonidine. However, clonidine is taken as needed by the patient for anxiety/depression.
[2023-02-28 09:12] LABS: Glucose, Whole Blood 95 mg/dL (60-115)
[2023-02-28 09:13] LABS: CT PCR NOT DETECTED (Not Detect.); NG PCR NOT DETECTED (Not Detect.)
--- NOTE | 2023-02-28 09:48 | PM.HPGS ---
History of Present Illness History of Present Illness Date of Service: 03/05/23 Chief complaint: Abdominal Pain Narrative: Yelena Vidales is a 37 year old female who came to the emergency room last night because of abdominal pain. She says that this was on the epigastric area in the right lower quadrant. This had been going on for about 2-3 days. She had a little bit of nausea but denies any vomiting. She said she did have some loose stools prior to onset of her pain She says the pain had been persistent constant. She denies any fever or chills. She is chronically underweight and has a BMI of 15. She says that she has had always been this way because of what she was told was her thyroid disease as well as with poor appetite. She says that she has been told she has chronic anemia. She had uterine ablation(?) in the past because of heavy periods. She also says that she has episodes of hypoglycemia. She denies urinary complaints. Review of Systems Constitutional: Constitutional: Reports as per HPI, Denies chills, Denies fatigue, Denies fever(s) and Denies headache(s) ENT: Denies headache(s) Cardiovascular: Cardiovascular: Denies chest pain and Denies dyspnea Respiratory: Respiratory: Denies cough and Denies dyspnea Gastrointestinal: Gastrointestinal: Reports abdominal pain, Denies constipation, Reports diarrhea, Reports nausea and Denies vomiting Genitourinary: Genitourinary: Denies menorrhagia, Denies dysuria and Denies vaginal discharge Neurologic: Denies headache(s) and Denies focal weakness Endocrine: Endocrine: Denies fatigue [facility] Past Medical History Medical History (Updated 02/28/23 @ 09:51 by Gadiel Nicole MD) Anxiety and depression Chronic anemia Dizziness Exposure to COVID-19 virus Hypoglycemia Incomplete right bundle branch block Moderate recurrent major depression Numbness Physical exam Sinus tachycardia Family History Family History (Updated 11/24/22 @ 09:34 by Carolina Candelaria MD) Mother Diabetes High blood pressure Sciatic nerve disease Father High blood pressure Asthma Surgical History Surgical History (Updated 03/01/23 @ 08:34 by Elida Medellin PA-C) History of endometrial ablation Social History Social History Household Members: Family Housing: Apartment Do you presently have visiting nurse or other home services: No Alcohol intake: current Alcohol intake frequency: holidays/special occasions only Patient Tobacco Use Status: Current everyday Tobacco user Tobacco use type: Cigarette Cigarette Packs Per Day: 1 Cigarettes Per Day: 20.0 e-Cigarette/Vaping Use: Currently Using Second Hand Smoke Exposure: No service: No Current occupational status: employed 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 Current occupational exposures/hazards: No Cognitive needs: No Hearing needs: No Vision needs: No Meds Allergies Allergy/AdvReac Type Severity Reaction Status Date / Time meclizine AdvReac Intermediate anxiety Verified 02/27/23 21:06 Active Medications: Current Medications Dextrose/Sodium Chloride (D5ns) 1,000 mls @ 80 mls/hr IVCONT .[id number] [facility] Last Admin: 02/28/23 02:11 Dose: 80 mls/hr Piperacillin Sod/Tazobactam (Sod 3.375 gm/ Sodium Chloride) 50 mls @ 100 mls/hr IV Q6H [facility] Last Infusion: 02/28/23 08:16 Dose: Infused Morphine Sulfate (Morphine Sulfate 2 Mg/Ml Cartridge) 2 mg IVPUSH Q3H PRN; Protocol PRN Reason: Pain, Severe (Pain Scale 7-10) Last Admin: 02/28/23 08:12 Dose: 2 mg Ondansetron HCl (Ondansetron Hcl 4 Mg/2 Ml Vial) 4 mg IVPUSH Q8H PRN PRN Reason: Nausea and Vomiting Pharmacy Consult (Consult Rx Perform Med Rec) 1 each MISCELLANE ONCE PRN PRN Reason: Consult order Sodium Chloride (0.9 % Sodium Chloride Flush 3 Ml Syringe) 3 ml IVFLUSH QSHIFT [facility] Last Admin: 02/28/23 07:04 Dose: Not Given Home Medications Medication Instructions Recorded Confirmed Last Taken Type mirtazapine 45 mg tablet 45 mg PO BEDTIME 10/15/20 02/28/23 02/25/23 History clonidine HCl 0.1 mg tablet 0.1 mg PO DAILY PRN Anxiety 02/28/23 02/28/23 2 Weeks Ago History ~02/14/23 Physical Exam Vital Signs: Vital Signs: Last Vital Signs Temp 98.4 F 02/28/23 07:25 Pulse 78 02/28/23 07:25 Resp 18 05/21/23 07:25 BP 132/56 L 02/28/23 07:25 Pulse Ox 98 02/28/23 07:25 O2 Del Method Room Air 02/28/23 07:25 BMI result Body Mass Index 15.1 Const: Other: appears underweight General: comfortable and no acute distress Orientation/consciousness: patient oriented x3 Neck: Neck: Yes no lymphadenopathy Resp: Auscultation: clear to auscultation bilaterally Cardio: Rhythm: regular rhythm GI: Other: tender on lower abdomen, right more than the left, with mild guarding, no rebound Palpation (GI): Soft to palpation, Tenderness to palpation present (GI) and Guarding due to palpation present (GI) Neuro: General: patient oriented x3 Results Results Labs: Short CBC 02/27/23 Range/Units 21:31 WBC 9.3 (4.8-10.8) X10*3/uL Hgb 12.2 (12.0-16.0) g/dl Hct 36.2 L (37.0-47.0) % Plt Count 183 (160-400) X10*3/uL BMP 02/27/23 21:31 Sodium 137 Potassium 3.4 Chloride 108 Carbon Dioxide 22 BUN 9 Creatinine 0.72 Calcium 9.1 Liver Function 02/27/23 Range/Units 21:31 Total Bilirubin 0.9 (0.0-1.0) mg/dL AST 15 (5-31) U/L ALT 11 (0-31) U/L Alkaline Phosphatase 44 (39-117) U/L Albumin 4.3 (3.5-5.0) g/dL Urine 02/27/23 Range/Units 23:35 Urine Color Dark Yellow Urine Appearance Cloudy Urine pH >= 9.0 (5.0-9.0) Ur Specific [place] >= 1.030 H (1.005-1.025) Urine Protein 100 (2+) H (Neg-Trace) mg/dL Urine Glucose (UA) Negative (Negative) mg/dL Laboratory Results WBC 9.3 X10*3/uL (4.8-10.8) 02/27/23 21:31 RBC 3.84 X10*6/uL (4.20-5.50) L 02/27/23 21:31 Hgb 12.2 g/dl (12.0-16.0) 02/27/23 21:31 Hct 36.2 % (37.0-47.0) L 02/27/23 21: MCV 94.3 fL (80.0-98.0) 02/27/23 21: MCH 31.8 pg (27.0-33.0) 02/27/23 21: MCHC 33.7 g/dl (31.0-35.0) 02/27/23 21: RDW 12.7 % (11.0-16.0) 02/27/23 21: Plt Count 183 X10*3/uL (160-400) 02/27/23 21: MPV 10.8 fL (9.4-12.3) 02/27/23 21: Immature Gran % (Auto) 1.1 % (0.0-0.4) H 02/27/23 21: Neut % (Auto) 85.2 % (45-73) H 02/27/23 21: Lymph % (Auto) 9.7 % (20-40) L 02/27/23 21: [place] % (Auto) 3.6 % (2-11) 02/27/23 21: Eos % (Auto) 0.3 % (0-4) 02/27/23 21: Baso % (Auto) 0.1 % (0-2) 02/27/23 21: Lymph # (Auto) 0.9 X10*3/uL (1.2-4.9) L 02/27/23 21: [place] # (Auto) 0.3 X10*3/uL (0.1-1.2) 02/27/23 21: Eos # (Auto) 0.0 X10*3/uL (0.0-0.4) 02/27/23 21: Baso # (Auto) 0.0 X10*3/uL (0.0-0.2) 02/27/23 21: Abs Immat Gran (auto) 0.10 X10*3/uL (0.00-0.03) H 02/27/23 21: Absolute Neuts (auto) 7.9 x10*3/uL (2.0-8.3) 02/27/23 21: Absolute Nucleated RBC 0.000 X10*3/uL (0.0-0.012) 02/27/23 21:31 Nucleated RBC % (auto) 0.0 /100WBC (0.0-0.2) 02/27/23 21:31 PT 15.6 SEC (10.0-13.1) H 02/28/23 01:48 INR 1.3 (0.9-1.1) H 02/28/23 01:48 APTT 34.4 SEC (26.0-36.4) 02/28/23 01:48 Sodium 137 mmol/L (135-145) 02/27/23 21:31 Potassium 3.4 mmol/L (3.3-5.1) 02/27/23 21:31 Chloride 108 mmol/L (96-108) 02/27/23 21:31 Carbon Dioxide 22 mmol/L (22-29) 02/27/23 21:31 Anion Gap 10 (12-20) L 02/27/23 21:31 BUN 9 mg/dL (9-16) 02/27/23 21:31 Creatinine 0.72 mg/dL (0.5-1.4) 02/27/23 21:31 Estim Creat Clear Calc 73.1 02/27/23 21:31 Estimated GFR > 60 02/27/23 21:31 POC Glucose 95 mg/dL (60-115) 02/28/23 09:07 Random Glucose 100 mg/dL (60-115) 02/27/23 21:31 Lactic Acid 0.6 mmol/L (0.5-2.0) 02/28/23 01:48 Calcium 9.1 mg/dL (8.4-10.2) 02/27/23 21: Magnesium 1.6 mg/dL (1.6-2.6) 02/27/23 21:31 Total Bilirubin 0.9 mg/dL (0.0-1.0) 02/27/23 21:31 AST 15 U/L (5-31) 02/27/23 21:31 ALT 11 U/L (0-31) 02/27/23 21:31 Alkaline Phosphatase 44 U/L (39-117) 02/27/23 21:31 Total Protein 7.0 g/dL (6.5-8.0) 02/27/23 21:31 Albumin 4.3 g/dL (3.5-5.0) 02/27/23 21: Beta HCG, Quant < 2 mIU/mL 02/27/23 21: Urine Color Dark Yellow 02/27/23 23:35 Urine Appearance Cloudy 02/27/23 23:35 Urine pH >= 9.0 (5.0-9.0) 02/27/23 23: Ur Specific [place] >= 1.030 (1.005-1.025) H 02/27/23 23:35 Urine Protein 100 (2+) mg/dL (Neg-Trace) H 02/27/23 23:35 Urine Glucose (UA) Negative mg/dL (Negative) 02/27/23 23: Urine Ketones Trace mg/dL (Negative) 02/27/23 23: Urine Blood Negative (Negative) 02/27/23 23: Urine Nitrite Negative (Negative) 02/27/23 23:35 Ur Leukocyte Esterase Trace (Negative) H 02/27/23 23:35 Urine RBC 3-5 /HPF (0-2) H 02/27/23 23:35 Urine WBC 0-5 /HPF (0-5) 02/27/23 23:35 Ur Squamous Epith Cells 3-5 /HPF (0-2) 02/27/23 23:35 Urine Bacteria Trace (None Seen) 02/27/23 23:35 Hyaline Casts 0-2 /LPF (0-2) 02/27/23 23:35 Chlam trachomat DNA PCR NOT DETECTED (Not Detect.) 02/27/23 23:35 COVID-19 ([facility]) Negative (Negative) 02/28/23 01:48 COVID-19 Clin Com See Note 02/28/23 01:48 N.gonorrhoeae DNA (PCR) NOT DETECTED (Not Detect.) 02/27/23 23: Blood Type O Positive 02/28/23 01:48 Antibody Screen NEGATIVE 02/28/23 01:48 Impressions Abdomen/Pelvis CT 02/28/23 00:04 IMPRESSION: * Acute uncomplicated appendicitis. * Incidental finding of dilatation of the left gonadal vein, possibly related to compression of the left renal vein as it courses subjacent to the superior mesenteric artery. Nonemergent, outpatient clinical correlation recommended for both nutcracker and pelvic venous congestion syndrome. Assessment and Plan (1) Acute appendicitis: Status: Acute She is here with lower abdominal pain, right more than the left. I have reviewed her CAT scan this shows thickening and dilatation of the appendix with leydi initial inflammatory changes consistent with acute appendicitis. I therefore had a long discussion with her about the technique of laparoscopic appendectomy. I reviewed with her the risks including but not limited to bleeding, infections, injury to the other organs including bowel and the urinary tract, and risks of anesthesia, blood clots, pneumonia, as well as the benefits and alternatives. She understands the option of 3 biotic treatment alone She says she wants to proceed with appendectomy understands the risks. Her mother was with her during the discussion. The discussion was done in the presence of a foreign language professor. Time Spent With Patient Time: Total time managing care of this patient today ____ minutes. Quality Stroke Does the patient have a stroke diagnosis?: No VTE Prior VTE?: No VTE Risk Level:: Medical - low VTE Device Contraindication: N/A - Device Ordered VTE Drug Contraindication: Treatment Not Indicated Procedures Date of Service Date of Service: 03/05/23
--- NOTE | 2023-02-28 12:03 | HO.ANESPROP2 ---
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 (Acute) Costochondritis (Acute) Neck pain (Acute) Back pain (Acute) Sprain of left index finger (Acute) Stiffness of finger joint of left hand (Acute) Pain in finger of left hand (Acute) Moderate recurrent major depression (Acute) Numbness (Acute) Exposure to COVID-19 virus (Acute) Bacterial vaginosis (Acute) Palpitations (Acute) Incomplete right bundle branch block (Acute) Sinus tachycardia (Acute) Dizziness (Acute) Gastroenteritis (Acute) Physical exam (Acute) Past Medical History Medical History (Updated 02/28/23 @ 09:51 by Gadiel Nicole MD) Anxiety and depression Chronic anemia Dizziness Exposure to COVID-19 virus Hypoglycemia Incomplete right bundle branch block Moderate recurrent major depression Numbness Physical exam Sinus tachycardia Family History Family History (Updated 11/24/22 @ 09:34 by Carolina Candelaria MD) Mother Diabetes High blood pressure Sciatic nerve disease Father High blood pressure Asthma Family history of problems with anesthesia: No Surgical History Surgical History History of endometrial ablation History of Problems with Anesthesia: No Social History Social History Household Members: Family Housing: Apartment Do you presently have visiting nurse or other home services: No Alcohol intake: current Alcohol intake frequency: holidays/special occasions only Patient Tobacco Use Status: Current everyday Tobacco user Tobacco use type: Cigarette Cigarette Packs Per Day: 1 Cigarettes Per Day: 20.0 Smoked in Last 30 Days: Yes e-Cigarette/Vaping Use: Currently Using Patient Interested in Nicotine Replacement: Yes Patient Given Instructions on How to Stop Smoking: No Second Hand Smoke Exposure: No Use of substances other than those prescribed or required for medical reasons: No Currently Displaying Signs/Symptoms of Drug Intoxication Withdrawal: No Have you been hit, kicked, punched, or otherwise hurt by someone within the past year? 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 Current occupational exposures/hazards: No Cognitive needs: No Hearing needs: No Vision needs: No Meds Allergies Allergy/AdvReac Type Severity Reaction Status Date / Time meclizine AdvReac Intermediate anxiety Verified 02/27/23 21:06 Active Medications: Current Medications Dextrose/Sodium Chloride (D5ns) 1,000 mls @ 80 mls/hr IVCONT .[id number] [facility] Last Admin: 02/28/23 02:11 Dose: 80 mls/hr Piperacillin Sod/Tazobactam (Sod 3.375 gm/ Sodium Chloride) 50 mls @ 100 mls/hr IV Q6H [facility] Last Infusion: 02/28/23 08:16 Dose: Infused Morphine Sulfate (Morphine Sulfate 2 Mg/Ml Cartridge) 2 mg IVPUSH Q3H PRN; Protocol PRN Reason: Pain, Severe (Pain Scale 7-10) Last Admin: 02/28/23 08:12 Dose: 2 mg Ondansetron HCl (Ondansetron Hcl 4 Mg/2 Ml Vial) 4 mg IVPUSH Q8H PRN PRN Reason: Nausea and Vomiting Pharmacy Consult (Consult Rx Perform Med Rec) 1 each MISCELLANE ONCE PRN PRN Reason: Consult order Sodium Chloride (0.9 % Sodium Chloride Flush 3 Ml Syringe) 3 ml IVFLUSH QSHIFT [facility] Last Admin: 02/28/23 07:04 Dose: Not Given Home Medications Medication Instructions Recorded Confirmed Last Taken Type mirtazapine 45 mg tablet 45 mg PO BEDTIME 10/15/20 02/28/23 02/25/23 History clonidine HCl 0.1 mg tablet 0.1 mg PO DAILY PRN Anxiety 02/28/23 02/28/23 2 Weeks Ago History ~02/14/23 Exam Exam Date and Time: February 28, 2023 1203 Height,Weight and Vital Signs: Height 5 ft 6 in Weight 42.5 kg Last Vital Signs Temp 98.4 F 02/28/23 07:25 Pulse 78 02/28/23 07:25 Resp 18 02/28/23 07:25 BP 132/56 L 02/28/23 07:25 Pulse Ox 98 02/28/23 07:25 O2 Del Method Room Air 02/28/23 07:25 Pertinent Lab Results Pertinent Lab Results: Laboratory Tests 02/27/23 02/27/23 02/27/23 21:31 21:31 23:35 WBC 9.3 RBC 3.84 L Hgb 12.2 Hct 36.2 L MCV 94.3 MCH 31.8 MCHC 33.7 RDW 12.7 Plt Count 183 MPV 10.8 Immature Gran % (Auto) 1.1 H Neut % (Auto) 85.2 H Lymph % (Auto) 9.7 L [place] % (Auto) 3.6 Eos % (Auto) 0.3 Baso % (Auto) 0.1 Lymph # (Auto) 0.9 L [place] # (Auto) 0.3 Eos # (Auto) 0.0 Baso # (Auto) 0.0 Abs Immat Gran (auto) 0.10 H Absolute Neuts (auto) 7.9 Absolute Nucleated RBC 0.000 Nucleated RBC % (auto) 0.0 PT INR APTT Sodium 137 Potassium 3.4 Chloride 108 Carbon Dioxide 22 Anion Gap 10 L BUN 9 Creatinine 0.72 Estim Creat Clear Calc 73.1 Estimated GFR > 60 POC Glucose Random Glucose 100 Lactic Acid Calcium 9.1 Magnesium 1.6 Total Bilirubin 0.9 AST 15 ALT 11 Alkaline Phosphatase 44 Total Protein 7.0 Albumin 4.3 Beta HCG, Quant < 2 Urine Color Urine Appearance Urine pH Ur Specific [place] Urine Protein Urine Glucose (UA) Urine Ketones Urine Blood Urine Nitrite Ur Leukocyte Esterase Urine RBC Urine WBC Ur Squamous Epith Cells Urine Bacteria Hyaline Casts Chlam trachomat DNA PCR NOT DETECTED COVID-19 ([facility]) COVID-19 Clin Com N.gonorrhoeae DNA (PCR) NOT DETECTED Blood Type Antibody Screen 02/27/23 02/28/23 02/28/23 23:35 01:48 01:48 WBC RBC Hgb Hct MCV MCH MCHC RDW Plt Count MPV Immature Gran % (Auto) Neut % (Auto) Lymph % (Auto) [place] % (Auto) Eos % (Auto) Baso % (Auto) Lymph # (Auto) [place] # (Auto) Eos # (Auto) Baso # (Auto) Abs Immat Gran (auto) Absolute Neuts (auto) Absolute Nucleated RBC Nucleated RBC % (auto) PT INR APTT Sodium Potassium Chloride Carbon Dioxide Anion Gap BUN Creatinine Estim Creat Clear Calc Estimated GFR POC Glucose Random Glucose Lactic Acid 0.6 Calcium Magnesium Total Bilirubin AST ALT Alkaline Phosphatase Total Protein Albumin Beta HCG, Quant Urine Color Dark Yellow Urine Appearance Cloudy Urine pH >= 9.0 Ur Specific [place] >= 1.030 H Urine Protein 100 (2+) H Urine Glucose (UA) Negative Urine Ketones Trace Urine Blood Negative Urine Nitrite Negative Ur Leukocyte Esterase Trace H Urine RBC 3-5 H Urine WBC 0-5 Ur Squamous Epith Cells 3-5 Urine Bacteria Trace Hyaline Casts 0-2 Chlam trachomat DNA PCR COVID-19 ([facility]) Negative COVID-19 Clin Com See Note N.gonorrhoeae DNA (PCR) Blood Type Antibody Screen 02/28/23 02/28/23 02/28/23 01:48 01:48 09:07 WBC RBC Hgb Hct MCV MCH MCHC RDW Plt Count MPV Immature Gran % (Auto) Neut % (Auto) Lymph % (Auto) [place] % (Auto) Eos % (Auto) Baso % (Auto) Lymph # (Auto) [place] # (Auto) Eos # (Auto) Baso # (Auto) Abs Immat Gran (auto) Absolute Neuts (auto) Absolute Nucleated RBC Nucleated RBC % (auto) PT 15.6 H INR 1.3 H APTT 34.4 Sodium Potassium Chloride Carbon Dioxide Anion Gap BUN Creatinine Estim Creat Clear Calc Estimated GFR POC Glucose 95 Random Glucose Lactic Acid Calcium Magnesium Total Bilirubin AST ALT Alkaline Phosphatase Total Protein Albumin Beta HCG, Quant Urine Color Urine Appearance Urine pH Ur Specific [place] Urine Protein Urine Glucose (UA) Urine Ketones Urine Blood Urine Nitrite Ur Leukocyte Esterase Urine RBC Urine WBC Ur Squamous Epith Cells Urine Bacteria Hyaline Casts Chlam trachomat DNA PCR COVID-19 ([facility]) COVID-19 Clin Com N.gonorrhoeae DNA (PCR) Blood Type O Positive Antibody Screen NEGATIVE Airway Mallampati Class: II TM Dist: >3cm Neck ROM: Full Denture: Upper and Lower Assessment and Plan Assessment Anesthesia Assessment: Anesthesia Plan Discussed and Chart Reviewed Final Anesthetic Review Family History of Problems with Anesthesia: No History of Problems with Anesthesia: No NPO: Yes ASA Class: II and Emergency Final Preanesthetic Review: No Changes in Pt Med Stat, Meds/Allgs Chart Reviewed, Consent Obtained/Reviewed and Anes Risks/Benef Reviewed Patient Risk: Intermediate Procedure Risk: Low Anesthetic Plan Anesthetic Plan: GA and Agree w/ Assess. and Plan Disposition: Standard PACU
--- NOTE | 2023-02-28 12:40 | P.OP_ITS ---
Operative Note Operative Note Date of Service: 02/28/23 Narrative: Preop diagnosis: Acute appendicitis Postop diagnosis: acute appendicitis, suppurative Procedure: Laparoscopic appendectomy Surgeon: Gadiel Nicole MD the patient is a 37-year-old female with right lower quadrant pain and tenderness. Her CAT scan was consistent with acute appendicitis. She understood the technique of laparoscopic appendicectomy. She was aware of the risks, benefits, and alternatives Was brought to the operating room and placed supine under general anesthesia via endotracheal tube. A Bartlett catheter was inserted. The abdomen was prepped and draped in the usual sterile fashion. A surgical time-out was done. The patient was receiving scheduled antibiotics. I made a short infraumbilical incision using a blade 15. This was carried down through the full-thickness of the skin and subcutaneous fat. The fascia was incised. The peritoneum was entered. Through this incision a Kirstin port reduced. Pneumoperitoneum was introduced to a pressure of 15 mm hg. From here on the rest of the procedure was done under vision with the 5 mm flat scope. With laparoscopic visualization I proceeded to insert a 5 mm port and tip supraumbilical and the left lower quadrant through small stab incisions. The patient was placed in a steep head-down [id number] position. Graspers were placed through these working ports. I reflected all bowel loops away from the right lower quadrant. The cecum was visualized. I lifted the cecum off of the right lower quadrant I was able to visualize the appendix. The appendix was markedly indurated and suppurative at the distal half. There was note of surrounding thick serous fluid. I applied a grasper gently on the appendix to put this on stretch. I used a [place] dissector to create a mesenteric window at the base. I then used an Endo-RAVI 45 mm stapler to transect the appendix at the base. I completed dissection of the appendix using the LigaSure to divide the mesoappendix. The appendix was retrieved through an endobag through the umbilical incision. I reinserted all ports and re-insufflated. I examined the area of dissection. There was no bleeding. The staple line was intact I observed all other quadrants. There was no other pathology seen except for adhesions on the right side along the right colon. There was no evidence of any bowel injury There was note of some soupy fluid in the cul-de-sac. This was suctioned out . I then desufflated the port sites. I removed all ports. I closed the fascia of umbilical incision with a [id number] Polysorb 0 stitch All skin incisions were closed with Polysorb 4-0 subcuticular running sutures. All incisions were infiltrated with Marcaine 0.5% for postop analgesia. Steri- Strips and dressings were applied. The procedure was completed. The patient tolerated procedure well. There were no immediate complications. Initial final counts of sponges and instruments were correct. Estimated blood loss was less than 10 cc The patient was extubated without difficulty and transferred to the recovery room with stable vital signs.
[2023-02-28 13:39] LABS: Glucose, Whole Blood 85 mg/dL (60-115)
--- NOTE | 2023-02-28 14:53 | PM.EVENT ---
Event Note Date of Service: 02/28/23 Event Note: seen postop s/p lap appy, with suppurative appendicitis adequate pain control stable VS abd soft pain mgt diet as tolerated hopefully, dc home rhonda Time Spent With Patient Time: Total time managing care of this patient today ____ minutes.
[2023-02-28 16:31] LABS: Glucose, Whole Blood 111 mg/dL (60-115)
--- NOTE | 2023-02-28 17:38 | PC.NURSE ---
MD Nicole made aware via tiger text at 17:22 of Pts BP of 98/55 and HR of 48, pt asymptomatic at time of VS recording. notified via tiger text at 1731, Pt ambulated to the bathroom with assistance, at this time Pt began to feel dizzy appeared pale, pt was sat down in chair VS as follows 97.8, HR 58, 18, 123/71, 100% on RA. Pt recovered from dizziness within 5 min walked back to bed. Now resting comfortably in bed, bed alarm on, reports dizziness is gone, no signs and symptoms of distress, no new orderers at this time.
[2023-02-28] MEDS: 0.9 % Sodium Chloride Flush 3 ML SYRINGE IVFLUSH (20:36)
[2023-02-28] MEDS: oxyCODONE HCl Immed Release 5 MG TABLET PO (20:54)
--- NOTE | 2023-02-28 23:48 | PC.NURSE ---
Patient's mother overnight visit approved by Michelle nursing boat and plant utility supervisor.
[2023-03-01] MEDS: Piperacillin Sodium/Tazobactam 3.375 GM in 0.9 % Sodium Chloride 50 ML IV ×2 (02:11→08:16)
[2023-03-01 04:00] VITALS: BP 94/51; PULSE 63; RESP 16; TEMP 36.4; O2SAT 99
[2023-03-01] MEDS: oxyCODONE HCl Immed Release 5 MG TABLET PO (05:53)
[2023-03-01 07:07] VITALS: BP 92/54; PULSE 52; RESP 16; TEMP 36.2; O2SAT 98
[2023-03-01 07:23] LABS: Glucose, Whole Blood 134 mg/dL (60-115)
[2023-03-01] MEDS: 0.9 % Sodium Chloride Flush 3 ML SYRINGE IVFLUSH (08:21)
--- NOTE | 2023-03-01 08:29 | P.PNGS_ITS ---
Subjective Subjective Date of Service: 03/01/23 <Elida Medellin PA-C - Last Filed: 03/01/23 08:37> 03/01/23 <Gadiel Nicole MD - Last Filed: 03/01/23 12:26> Interval history: Feels very sore this morning. Morphine helping but oxycodone wears off too quickly. Has not been OOB. Tolerating solid diet without N/V. <Elida Medellin PA-C - Last Filed: 03/01/23 08:37> Physical Exam Vital Signs: Vital Signs: Last Vital Signs Temp 97.2 F 03/01/23 07:07 Pulse 52 03/01/23 07:07 Resp 16 03/01/23 07:07 BP 92/54 L 03/01/23 07:07 Pulse Ox 98 03/01/23 07:07 O2 Del Method Room Air 03/01/23 07:07 O2 Flow Rate 2 02/28/23 12:55 BMI result Body Mass Index 15.1 <Elida Medellin PA-C - Last Filed: 03/01/23 08:37> Const: General: comfortable, no acute distress and alert <Elida Medellin PA-C - Last Filed: 03/01/23 08:37> Orientation/consciousness: patient oriented x3 <KAREEN Vitale Last Filed: 03/01/23 08:37> Resp: Effort & Inspection: normal respiratory effort <KAREEN Vitale Last Filed: 03/01/23 08:37> GI: Inspection: No distended and Yes incision (dressings c/d/i) <Elida Medellin PA-C - Last Filed: 03/01/23 08:37> Palpation (GI): Soft to palpation, Tenderness to palpation present (GI) (incisional), no guarding and not rigid <KAREEN Vitale Last Filed: 03/01/23 08:37> Percussion: Yes normal to percussion <KAREEN Vitale Last Filed: 03/01/23 08:37> Skin: General skin exam: no rashes or lesions noted <KAREEN Vitale Filed: 03/01/23 08:37> Neuro: General: patient oriented x3 and moves all extremities <Elida Medellin PA-C - Last Filed: 03/01/23 08:37> Objective Data Active Medications Fentanyl (Fentanyl Citrate/Pf 100 Mcg/2 Ml Vial) 25 mcg IVPUSH Q5M PRN; Protocol PRN Reason: Pain, Moderate(Pain Scale 4-6) Dextrose/Sodium Chloride (D5ns) 1,000 mls @ 80 mls/hr IVCONT .[id number] [facility] Last Admin: 03/01/23 02:48 Dose: Not Given Documented By: ELFEGO Non-Admin Reason: IV Running Piperacillin Sod/Tazobactam (Sod 3.375 gm/ Sodium Chloride) 50 mls @ 100 mls/hr IV Q6H [facility] Last Admin: 03/01/23 08:16 Dose: 100 mls/hr Documented By: BENNY Ibuprofen (Ibuprofen 600 Mg Tablet) 600 mg PO Q6H PRN PRN Reason: Pain, Moderate(Pain Scale 4-6) Ondansetron HCl (Ondansetron Hcl 4 Mg/2 Ml Vial) 4 mg IVPUSH Q8H PRN PRN Reason: Nausea and Vomiting Last Admin: 02/28/23 14:56 Dose: 4 mg Documented By: TRACIE Ondansetron HCl (Ondansetron Hcl 4 Mg/2 Ml Vial) 4 mg IVPUSH ONCE PRN PRN Reason: Nausea and Vomiting Oxycodone HCl (Oxycodone Hcl Immed Release 5 Mg Tablet) 5 mg PO Q4H PRN PRN Reason: Pain, Moderate(Pain Scale 4-6) Last Admin: 03/01/23 05:53 Dose: 5 mg Documented By: ELFEGO Pharmacy Consult (Consult Rx Perform Med Rec) 1 each MISCELLANE ONCE PRN PRN Reason: Consult order Sodium Chloride (0.9 % Sodium Chloride Flush 3 Ml Syringe) 3 ml IVFLUSH QSHIFT [facility] Last Admin: 03/01/23 08:21 Dose: 3 ml Documented By: BENNY <Elida Medellin PA-C - Last Filed: 03/01/23 08:37> Labs CBC & Chem 7: 02/27/23 21:31 02/27/23 21:31 <Elida Medellin PA-C - Last Filed: 03/01/23 08:37> Labs: Laboratory Results - last 24 hr 02/27/23 02/28/23 02/28/23 23:35 09:07 13:20 POC Glucose 95 85 Chlam trachomat DNA PCR NOT DETECTED N.gonorrhoeae DNA (PCR) NOT DETECTED 02/28/23 03/01/23 16:26 07:12 POC Glucose 111 134 H Chlam trachomat DNA PCR N.gonorrhoeae DNA (PCR) <Elida Medellin PA-C - Last Filed: 03/01/23 08:37> Microbiology Microbiology Results: Microbiology 02/28/23 02:15 Blood Culture - Preliminary Blood - Venous No growth after 24 hours. 02/28/23 01:48 Blood Culture - Preliminary Blood - Venous No growth after 24 hours. <Elida Medellin PA-C - Last Filed: 03/01/23 08:37> Procedures Date of Service Date of Service: 03/01/23 <Elida Medellin PA-C - Last Filed: 03/01/23 08:37> 03/01/23 <Gadiel Nicole MD - Last Filed: 03/01/23 12:26> Progress Note: A&P Assessment and plan (1) Acute appendicitis: Status: Acute <Elida Medellin PA-C - Last Filed: 03/01/23 08:37> (2) S/P laparoscopic appendectomy: Status: Acute <Elida Medellin PA-C - Last Filed: 03/01/23 08:37> Assessment and Plan: sore on incisions tolerating diet no N/V looks well abd soft plan to dc home later today seen and examined independently <Gadiel Nicole MD - Last Filed: 03/01/23 12:26> Assessment and Plan: 37 year old female admitted with acute appendicitis now POD #1 s/p lap appy. Doing well post op but c/o pain. VSS. Abd exam with appropriate post op tenderness, dressings intact and clean. Encouraged OOB and ambulation. Encourage PO analgesics in preparation for discharge. Will reassess for potential discharge to home later today. <Elida Medellin PA-C - Last Filed: 03/01/23 08:37> Time Spent With Patient Time: Total time managing care of this patient today ____ minutes. <Elida Medellin PA-C - Last Filed: 03/01/23 08:37> Quality Stroke Does the patient have a stroke diagnosis?: No <Elida Medellin PA-C - Last Filed: 03/01/23 08:37> VTE Prior VTE?: No <Elida Medellin PA-C - Last Filed: 03/01/23 08:37> VTE Risk Level:: Medical - low <Elida Medellin PA-C - Last Filed: 03/01/23 08:37> VTE Device Contraindication: N/A - Device Ordered <Eilda Medellin PA-C - Last Filed: 03/01/23 08:37> VTE Drug Contraindication: Treatment Not Indicated <Elida Medellin PA-C - Last Filed: 03/01/23 08:37>
--- NOTE | 2023-03-01 09:07 | HO.POSTANES ---
Post Anesthesia Evaluation Post Anesthesia Evaluation Vital Signs: Vital Signs Temp Pulse Resp BP Pulse Ox O2 Del Method 03/01/23 07:07 97.2 F 52 16 92/54 L 98 Room Air 03/01/23 04:00 97.5 F 63 16 94/51 L 99 Room Air 02/28/23 23:52 97.7 F 59 16 102/58 L 100 Room Air Anesthesia: General Endotracheal-GETA Mental Status: Awake Pain Control: Satisfactory Nausea/Vomiting: None Hydration: Adequate Anesthesia-Related Issues: No Anes. Related Issues
[2023-03-01] MEDS: Acetaminophen 325 MG TABLET 650 MG PO (09:14)
[2023-03-01] MEDS: Ibuprofen 600 MG TABLET PO (09:14)
[2023-03-01] MEDS: oxyCODONE HCl Immed Release 5 MG TABLET 10 MG PO (10:56)
[2023-03-01 11:25] LABS: Glucose, Whole Blood 110 mg/dL (60-115)
[2023-03-01 11:38] VITALS: O2SAT 98
--- NOTE | 2023-03-01 11:52 | MHC.CM.PN ---
Addendum entered by Jennifer Dickey RN 03/01/23 11:56: PATIENT ALSO REPORTS WANTING A WAY TO MONITOR HER BLOOD SUGAR AT HOME. NO HX OF DM ON FILE (HX OF HYPOGLYCEMIA) Original Note: PATIENT LIVES WITH FAMILY. SHE IS INDEPENDENT WITH HER ADLS. NO VNA OR DME. NO HCP ON FILE AND SHE WILL CONSIDER COMPLETING ONE. SHE TELLS THIS WRITE THAT HER INSURANCE DOES NOT COVER ENSURE, WHICH IS WHAT SHE WOULD LIKE TO NUTRITION. CASE MANAGEMENT FOLLOWING FOR DC NEEDS.
--- NOTE | 2023-03-01 13:34 | P.DS_ITS ---
DS: Providers Provider Date of Service: 03/01/23 Date of admission: 02/28/23 01:42 Date of discharge: 03/01/23 Primary care physician: Carolina Candelaria MD Attending physician on admission: Gadiel Nicole DS: Diagnosis Discharge Diagnosis (1) Acute appendicitis: Status: Acute (2) S/P laparoscopic appendectomy: Status: Acute DS: Summary Hospital Course Hospital Course: HPI AT ADMISSION: Yelena Vidales is a 37 year old female? who came to the emergency room last night because of abdominal pain.? She says that this was on the epigastric area in the right lower quadrant.? This had been going on for about 2-3 days.? She had a little bit of nausea but denies any vomiting.? She said she did have some loose stools prior to onset of her pain. She says the pain had been persistent constant.? She denies any fever or chills.? She is chronically underweight and has a BMI of 15.? She says that she has had always been this way because of what she was told was her thyroid disease as well as with poor appetite.?She says that she has been told she has chronic anemia.? She had uterine ablation(?) in the past because of heavy periods.She also says that she has episodes of hypoglycemia.?She denies urinary complaints. HOSPITAL COURSE: She was admitted to the surgical service for further treatment of acute appendicitis. It was recommended to proceed with laparoscopic a ppendectomy. She was added onto the OR schedule for that day. On 02/28/23, a laparoscopic appendectomy was performed by Dr. Nicole without complication. The appendix was markedly indurated and suppurative at the distal half.?She tolerated the procedure well. She had an uncomplicated recovery course. On POD #1 she was doing well. She was tolerating a solid diet without N/V, she was ambulated. Her abdomen was benign with appropriate post op tenderness and c/d/i dressings. She was reassessed later that day and felt comfortable with adequate pain control on PO analgesics. She was discharged on 03/01/23 in stable condition. She is to follow up in the office in 2 weeks. Status at Discharge Functional status at discharge: independent ambulation Overall status at discharge: patient is progressing back to baseline Time Spent with Patient Time attestation: Total time managing care of this patient today ____ minutes. Discharge coordination time: Less than 30 minutes Quality: Safe Use of Opioids Does Pt have an Active Cancer Diagnosis on the Problem List?: No Quality: Stroke Does the patient have a stroke diagnosis?: No Physical Exam Vital Signs: Vital Signs: Last Vital Signs Temp 97.2 F 03/01/23 07:07 Pulse 52 03/01/23 07:07 Resp 16 03/01/23 07:07 BP 92/54 L 03/01/23 07:07 Pulse Ox 98 03/01/23 11:38 O2 Del Method Room Air 03/01/23 11:38 O2 Flow Rate 2 02/28/23 12:55 BMI result Body Mass Index 15.1 Const: General: comfortable, no acute distress and alert Nutritional Appearance: thin Orientation/consciousness: patient oriented x3 Resp: Effort & Inspection: normal respiratory effort GI: Inspection: No distended Palpation (GI): Soft to palpation, Tenderness to palpation present (GI) (mild incisional), no guarding and not rigid Percussion: Yes normal to percussion Skin: General skin exam: no rashes or lesions noted Neuro: General: patient oriented x3 and moves all extremities DS: Data Data Completed and Pending Pending studies at discharge: Pending at discharge 02/28/23 12:15 Surgical [PTH] Routine Labs on day of discharge: Laboratory Results - last 24 hr 02/28/23 02/28/23 03/01/23 13:20 16:26 07:12 POC Glucose 85 111 134 H 03/01/23 11:17 POC Glucose 110 Preliminary micro results at discharge 02/28/23 02:15 Blood Culture - Preliminary Blood - Venous No growth after 24 hours. 02/28/23 01:48 Blood Culture - Preliminary Blood - Venous No growth after 24 hours. Discharge Plan Discharge Anticipated Discharge Date/Time: 03/01/23 14:42 Patient Disposition: Home, Self-Care Discharge Diagnosis: acute appendicitis s/p lap appy Referrals: Gadiel Nicole MD [Physician] - 2 Weeks Carolina Herrera MD [Primary Care Provider] - 1 Week Discharge Medications: New docusate sodium [Colace] 100 mg capsule 100 mg PO BID Qty: 30 0RF ibuprofen 600 mg tablet 600 mg PO Q6H PRN (Reason: pain) Qty: 30 0RF oxycodone 5 mg tablet 5 mg PO Q4H PRN (Reason: pain (scale score 7-10)) Qty: 24 0RF Rx Instructions: Partial Fill upon patient request. Continued clonidine HCl 0.1 mg Tablet 0.1 mg PO DAILY PRN (Reason: Anxiety) mirtazapine 45 mg tablet 45 mg PO BEDTIME Discharge Orders: Discharge Order (Routine); Ordered 03/01/23 Ordered By: Gadiel Nicole Diet: Advance to usual diet Activity on Discharge: No heavy lifting Stand Alone Forms: Patient Portal Discharge page Activity Restrictions/Additional Instructions: If the incision area is tender, you may apply an ice pack for short intervals (No more than 20 minutes on, followed by at least 20 minutes off). Do not apply heat. Do not use creams, lotions, or topical antibiotics. These can cause infection or allergic reaction. Ok to shower 24 hours after your surgery. Remove bandaids prior and replace as needed. You have steri strips (small white cloth strips) covering your incision- these will fall off ~1 week. Follow up in office with Dr. Nicole in 2 weeks. ([phone]) No heavy lifting (>10-20lbs) or strenuous activity! Call Your Doctor If: -Your temperature exceeds 101.5? F -You experience excessive pain or swelling -You have an unexpected reaction to medication -You have excessive bleeding -You experience continued vomiting/nausea -Your incision begins to separate -Your incision shows signs of infection such as increased redness, swelling, excessive pain, drainage (light blood or clear fluid is normal) or heat Care Plan Goals: Return to baseline health and resume normal activities following recovery period. Health Concerns: acute appendicitis anxiety Plan of Treatment: s/p laparoscopic appendectomy f/u in office Assessment: Doing well post op. Discharge Date/Time: 03/01/23 13:56
--- NOTE | 2023-03-01 14:54 | PM.EVENT ---
Event Note Date of Service: 03/01/23 Event Note: Seen on afternoon rounds Continues to tolerate diet Pain appears to be well controlled She looks well Stable vital signs Abdomen soft She says she is ready to be discharged Discharge instructions reviewed I will see her in the office for follow-up visit Her family was with her during the discussion Time Spent With Patient Time: Total time managing care of this patient today ____ minutes.
== END 2023-03-01 13:56 | disposition home or self-care (01) | DRG 234 ==
LOC: HO.ED 02-28 01:42 → HO.EDOVER 02-28 01:50 → HO.S3 02-28 02:08
PROVIDERS: Physician Assistant; Admitting Provider Surgery; Emergency Provider Emergency Medicine; PCP Internal Medicine; Visit Provider Surgery
PROC: 0DTJ4ZZ Resection of Appendix, Percutaneous Endoscopic Approach (ICD-10-PCS; CPT 44970; principal; 2023-02-28 10:30)
DX: K35.80 Unspecified acute appendicitis (principal); F33.9 Major depressive disorder, recurrent, unspecified; F17.210 Nicotine dependence, cigarettes, uncomplicated; R63.6 Underweight; Z68.1 Body mass index [BMI] 19.9 or less, adult; Z20.822 Contact with and (suspected) exposure to COVID-19; Z71.6 Tobacco abuse counseling; Z79.899 Other long term (current) drug therapy
CPT/HCPCS: 0353U; 36415; 74177; 80053; 81001; 82947; 83605; 83735; 84702; 85025; 85610; 85730; 86850; 86900; 86901; 87040; 87635; 88304; 99285; J1100; J1885; J2250; J2270; J2405; J2543; J3010; Q9967

== ENCOUNTER 2023-03-10 14:44 | Outpatient (REF) | payer OTHER, SELFPAY ==
[2023-03-10 14:54] LABS: MANUAL DIFF FLAG NO
[2023-03-10 15:19] LABS: Basophils Percent Auto 0.4 % (0-2); Eosinophils Absolute Auto 0.2 X10*3/uL (0.0-0.4); Eosinophils Percent Auto 4.5 % (0-4); Hematocrit 37.8 % (37.0-47.0); Imm Gran Abs Auto 0.01 X10*3/uL (0.00-0.03); Imm Gran Pct Auto 0.2 % (0.0-0.4); Lymphocytes Absolute Auto 1.6 X10*3/uL (1.2-4.9); Lymphocytes Percent Auto 31.2 % (20-40); Mean Corpuscular HGB Conc 31.7 g/dl (31.0-35.0); Mean Corpuscular Hemoglobin 31.7 pg (27.0-33.0); Mean Corpuscular Volume 99.7 fL (80.0-98.0); Mean Platelet Volume 9.7 fL (9.4-12.3); Monocytes Absolute Auto 0.4 X10*3/uL (0.1-1.2); Monocytes Percent Auto 6.9 % (2-11); Neutrophils Absolute Auto 2.9 x10*3/uL (2.0-8.3); Neutrophils Percent Auto 56.8 % (45-73); Platelet Count 296 X10*3/uL (160-400); Red Blood Count 3.79 X10*6/uL (4.20-5.50); Red Cell Distribution Width 13.6 % (11.0-16.0); White Blood Count 5.1 X10*3/uL (4.8-10.8)
[2023-03-10 15:53] LABS: Alanine Aminotransferase 11 U/L (0-31); Albumin Level 4.4 g/dL (3.5-5.0); Alkaline Phosphatase 50 U/L (39-117); Anion Gap 9 (12-20); Aspartate Amino Transferase 12 U/L (5-31); Bilirubin Total 0.5 mg/dL (0.0-1.0); Blood Urea Nitrogen 9 mg/dL (9-16); Calcium 9.2 mg/dL (8.4-10.2); Carbon Dioxide 28 mmol/L (22-29); Chloride 108 mmol/L (96-108); Cholesterol 170 mg/dL; Estimated Glomerular Filt Rate > 60; Glucose Fasting 87 mg/dL (60-99); HDL Cholesterol 45 mg/dL; LDL Cholesterol Calculated 112 mg/dl; Potassium 4.5 mmol/L (3.3-5.1); Sodium 140 mmol/L (135-145); Total Protein 7.3 g/dL (6.5-8.0); Triglycerides 69 mg/dL
[2023-03-10 16:08] LABS: Vitamin D 25-OH Total 11.8 ng/mL (>30)
[2023-03-10 16:09] LABS: TSH reflex Free T4 2.01 uIU/mL (0.32-4.0); Thyroid Stimulating Hormone 2.01 uIU/mL (0.32-4.0)
== END 2023-03-10 14:45 | disposition home or self-care (01) ==
LOC: HO.LAB 14:44
PROVIDERS: PCP Internal Medicine; Visit Provider Physician Assistant
DX: Z00.00 Encounter for general adult medical examination without abnormal findings (principal); R07.9 Chest pain, unspecified; R63.6 Underweight; E78.5 Hyperlipidemia, unspecified; E55.9 Vitamin D deficiency, unspecified
CPT/HCPCS: 36415; 80053; 80061; 82306; 84443; 85025

== ENCOUNTER → 2023-03-15 14:36 | Outpatient (BNVA) | payer OTHER, SELFPAY | PROVIDERS: PCP Internal Medicine; Visit Provider Surgery | DX: Z09 Encounter for follow-up examination after completed treatment for conditions other than malignant neoplasm (principal); Z87.19 Personal history of other diseases of the digestive system; Z90.49 Acquired absence of other specified parts of digestive tract | CPT/HCPCS: 99212 ==

== ENCOUNTER 2024-12-14 14:51 | Emergency (ER) | payer OTHER, SELFPAY ==
--- NOTE | ~2024-12-14 | XR_ITS ---
EXAMINATION: XR CHEST CLINICAL INFORMATION: CP COMPARISON: October 26, 2022. TECHNIQUE: 2 views of the chest were obtained. FINDINGS: Hyperinflated lungs. No consolidation, pleural effusion or pneumothorax. Cardiomediastinal silhouette size is normal. Mild multilevel lower thoracic spondylosis. XR/XR chest 2V IMPRESSION: Hyperinflated lungs without acute airspace disease. Electronically signed by: Rehan Puentes MD 12/14/2024 03:14 PM [facility]
[2024-12-14 14:54] VITALS: BP 127/74; PULSE 87; RESP 16; TEMP 37.2; O2SAT 100; BMI 16.9
--- NOTE | 2024-12-14 14:57 | ED_ITS ---
HPI - General Adult General Chief complaint: Nausea/Vomiting/Diarrhea Stated complaint: Fever 1 week, congestion, vomiting Time Seen by Provider: 12/14/24 19:43 Source: patient Mode of arrival: ambulatory Limitations: no limitations History of Present Illness ED Provider: CHUCK DESAI narrative: 39 yo female with PMH of recurrent UTI, anxiety, incomplete RBBB who has been sick for 10 days with cough, fevers, body aches - her son is also sick. No recent travel or procedures. She states she just cant take this anymore. She is not vaccinated against the flu. She is tolerating liquids. She has a cough as well. MD complaint: flu illness Onset (ago): day(s) (10) Location: face, chest, abdomen, left, right, upper extremity and lower extremity Radiation: non-radiation Severity: moderate Quality: aching Pain Consistency: constant Relieving factors: rest Exacerbating factors: movement Associated symptoms: fever/chills, headaches, loss of appetite, malaise, nausea/vomiting and weakness Treatments prior to arrival: none Related Data Home Medications ?Medication ?Instructions ?Recorded ?Confirmed mirtazapine 45 mg tablet 45 mg PO BEDTIME 10/15/20 03/10/23 clonidine HCl 0.1 mg tablet 0.1 mg PO DAILY PRN Anxiety 02/28/23 03/10/23 Previous Rx's ?Medication ?Instructions ?Recorded docusate sodium 100 mg capsule 100 mg PO BID #30 caps 03/01/23 (Colace) amoxicillin 875 mg-potassium 1 tab PO BID #14 tabs 03/10/23 clavulanate 125 mg tablet food supplemt, lactose-reduced 1 ea PO BID #237 mL 03/10/23 0.08 gram-1.5 kcal/mL oral liquid (Ensure Plus High Protein) hydrocodone 5 mg-acetaminophen 300 1 tab PO Q6H PRN severe pain 03/10/23 mg tablet (scale score 7-10) #20 tabs naproxen 500 mg tablet 500 mg PO BID PRN pain #20 tabs 03/10/23 ondansetron 4 mg disintegrating 4 mg PO Q8H PRN nausea and 03/10/23 tablet vomiting #14 tabs cholecalciferol (vitamin D3) 50 50 mcg PO DAILY 90 days #90 caps 05/03/23 mcg (2,000 unit) capsule benzonatate 100 mg capsule 100 mg PO BID PRN cough #14 caps 12/14/24 cefuroxime axetil 250 mg tablet 250 mg PO BID 7 days #14 tabs 12/14/24 cyclobenzaprine 10 mg tablet 10 mg PO TID PRN muscle spasm #20 12/14/24 tabs ondansetron 4 mg disintegrating 4 mg PO Q8H PRN nausea and 12/14/24 tablet vomiting #20 tabs Allergies Allergy/AdvReac Type Severity Reaction Status Date / Time meclizine AdvReac Intermediate anxiety Verified 12/14/24 14:57 Review of Systems 2 Review of Systems: Constitutional : pos Fever, pos Chills, pos Fatigue ENT/Mouth : No sore throat, No Rhinorrhea Eyes: No Eye Pain, No Swelling, No Redness Cardiovascular : No Chest Pain, No SOB, No Dyspnea on Exertion Respiratory : pos Cough, No Sputum Gastrointestinal : pos Nausea, No Vomiting, No Diarrhea, No abdominal Pain Genitourinary : No Dysuria, No Urinary Frequency, No Hematuria, Musculoskeletal : No joint pain, pos Myalgias, No Joint Swelling Skin : No Skin Lesions, No rash Neuro : pos Weakness, No Numbness, No Dizziness, positive Headache All other systems reviewed and are negative [facility] Past Medical History Attestation statement: The following information was validated with the patient. Source: old records reviewed Medical History Chronic anemia Hypoglycemia Anxiety and depression Moderate recurrent major depression Numbness Exposure to COVID-19 virus Incomplete right bundle branch block Sinus tachycardia Dizziness Physical exam Surgical History S/P laparoscopic appendectomy History of endometrial ablation Family History Family History Mother Diabetes High blood pressure Sciatic nerve disease Father High blood pressure Asthma Social History Social History Household Members: Family Housing: Apartment Do you presently have visiting nurse or other home services: No Alcohol intake: current Alcohol intake frequency: holidays/special occasions only Patient Tobacco Use Status: Current everyday Tobacco user Tobacco use type: Cigarette Cigarette Packs Per Day: 1 Cigarettes Per Day: 20.0 e-Cigarette/Vaping Use: Currently Using Second Hand Smoke Exposure: No Advance Directives: No Advance Directives Information Provided: No service: No Current occupational status: employed 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 Oriented X3. No acute distress. Eyes: Pupils equal, round and reactive to light. ENT: Pharynx normal. Neck: Normal inspection. Neck supple. CVS: Normal heart rate and rhythm. Pulses normal. Respiratory: No respiratory distress. Breath sounds normal. coarse cough heard Abdomen: Soft and nontender. Skin: Skin warm and dry. Normal skin color. Normal skin turgor. Extremities: No lower extremity edema. No calf ttp Neuro: Oriented X 3. No motor deficit. No sensory deficit. CN2-12 intact Course Course Course Narrative: This is an RME: Additional HPI, ROS, PE not included below will be deferred to primary provider. RME assessment and note performed by: Apolonia Grimes PA-C This is a [id number]-female who presents to the ER with complaints of cough, chest pain, nausea and vomiting.No urinary symptoms. Family is sick in the house with similar symptoms. Plan: Labs, UA, chest x-ray, EKG, further ER evaluation needed. Medications Administered Discontinued Medications Generic Name Dose Route Start Last Admin Trade Name Freq PRN Reason Stop Dose Admin Ceftriaxone Sodium 1 gm 12/14/24 19:58 12/14/24 20:24 Ceftriaxone Sodium 1 Gm Vial IVPUSH 12/14/24 19:59 1 gm ONCE ONE Administration Hydrocodone Bit/Homatropine Methylb 5 ml 12/14/24 19:58 12/14/24 21:26 Hydrocodone/Homat 5/1.5/5 Ml 5 Ml Syrup PO 12/14/24 19:59 5 ml ONCE ONE Administration Lactated Ringer's 1,000 mls @ 999 mls/hr 12/14/24 19:58 12/14/24 20:25 Lr IV 12/14/24 20:58 999 mls/hr .Q1H1M ONE Administration Ketorolac Tromethamine 15 mg 12/14/24 19:58 12/14/24 20:21 Ketorolac Tromethamine 15 Mg/Ml Vial IVPUSH 12/14/24 19:59 15 mg ONCE ONE Administration Ondansetron HCl 4 mg 12/14/24 19:58 12/14/24 20:21 Ondansetron Hcl 4 Mg/2 Ml Vial IVPUSH 12/14/24 19:59 4 mg ONCE ONE Administration Medical Decision Making Medical Decision Making MDM Narrative: 39 yo female with PMH of recurrent UTI, anxiety, incomplete RBBB here with c/o sick contacts and viral like illness at this time will obtain basic labs, EKG, low susp for VTE or ACS given symptoms they seem more viral and infectious - CXR ordered, UA, viral panel. If positive UA will dose with IV abx though she has no signs of sepsis and is tolerating PO can likely be managed as outpatient Differential Diagnosis Differential Diagnoses: The differential diagnosis associated with the presentation includes viral illness, UTI, myalgia, pneumonia Admission/Observation Consideration of admission/observation: Escalation of care including admission/observation considered feels much better tolerating PO stable for DC out of window for tamiflu Lab Data [facility] Lab Attestation statement: I reviewed the patient's lab results. 12/14/24 15:13 12/14/24 15:13 Labs: Lab Results 12/14/24 12/14/24 Range/Units 15:13 15:45 WBC 5.7 (4.8-10.8) X10*3/uL RBC 4.01 L (4.20-5.50) X10*6/uL Hgb 12.6 (12.0-16.0) g/dl Hct 38.3 (37.0-47.0) % MCV 95.5 (80.0-98.0) fL MCH 31.4 (27.0-33.0) pg MCHC 32.9 (31.0-35.0) g/dl RDW 13.3 (11.0-16.0) % Plt Count 234 (160-400) X10*3/uL MPV 10.3 (9.4-12.3) fL Immature Gran % (Auto) 0.3 (0.0-0.4) % Neut % (Auto) 60.1 (45-73) % Lymph % (Auto) 29.3 (20-40) % [place] % (Auto) 8.9 (2-11) % Eos % (Auto) 1.2 (0-4) % Baso % (Auto) 0.2 (0-2) % Lymph # (Auto) 1.7 (1.2-4.9) X10*3/uL [place] # (Auto) 0.5 (0.1-1.2) X10*3/uL Eos # (Auto) 0.1 (0.0-0.4) X10*3/uL Baso # (Auto) 0.0 (0.0-0.2) X10*3/uL Abs Immat Gran (auto) 0.02 (0.00-0.03) X10*3/uL Absolute Neuts (auto) 3.4 (2.0-8.3) x10*3/uL Absolute Nucleated RBC 0.000 (0.0-0.012) X10*3/uL Nucleated RBC % (auto) 0.0 (0.0-0.2) /100WBC Sodium 135 (135-145) mmol/L Potassium 3.6 (3.3-5.1) mmol/L Chloride 102 (96-108) mmol/L Carbon Dioxide 26 (22-29) mmol/L Anion Gap 11 L (12-20) BUN 6 L (9-16) mg/dL Creatinine 0.70 (0.5-1.4) mg/dL Estim Creat Clear Calc 82.6 Estimated GFR > 60 Random Glucose 85 (60-115) mg/dL Calcium 8.8 (8.4-10.2) mg/dL Magnesium 2.0 (1.6-2.6) mg/dL Total Bilirubin 0.3 (0.0-1.0) mg/dL Direct Bilirubin 0.1 (0.0-0.5) mg/dL AST 26 (5-31) U/L ALT 13 (0-31) U/L Alkaline Phosphatase 56 (39-117) U/L Troponin I High Sens < 2.7 (<3.5-17.0) ng/L Total Protein 8.1 H (6.5-8.0) g/dL Albumin 4.0 (3.5-5.0) g/dL Lipase 18 (8-78) U/L Beta HCG, Quant < 2 mIU/mL Urine Color Dark Yellow Urine Appearance Cloudy Urine pH 6.0 (5.0-9.0) Ur Specific [place] >= 1.030 H (1.005-1.025) Urine Protein 30 (1+) H (Neg-Trace) mg/dL Urine Glucose (UA) Negative (Negative) mg/dL Urine Ketones Trace (Negative) mg/dL Urine Blood Large (3+) H (Negative) Urine Nitrite Positive H (Negative) Ur Leukocyte Esterase Trace H (Negative) Urine RBC >20 H (0-2) /HPF Urine WBC 6-10 H (0-5) /HPF Ur Squamous Epith Cells 11-20 (0-2) /HPF Urine Bacteria 4+ (None Seen) Hyaline Casts 0-2 (0-2) /LPF Influenza Type A (PCR) POSITIVE A (Negative) Influenza Type B (PCR) NEGATIVE (Negative) RSV RNA Qual (PCR) NEGATIVE (Negative) SARS-CoV-2 RNA (RT-PCR) NEGATIVE (Negative) Independent Interpretation I performed an independent interpretation of an: EKG and Plain X-Ray (no pneumonia) Interpretation: Rate: 95 Rhythm: NSR [place]: normal Normal P waves. Normal ANGIE. incomplete RBBB ST T wave : no JUAN LUIS qTC: 444 prior studies: The study has been interpreted contemporaneously by me. . Radiology Impression Discussion of test interpretation with radiology: I have reviewed the radiologist's reading. External Record Review External record reviewed: Outpatient record Prescription Management I considered prescription management with: Pain Medication, Antiviral and Other Discharge Plan Discharge Clinical Impression: Influenza A, Acute UTI Patient Disposition: Home, Self-Care Instructions: Urinary Tract Infection in Women (ED), Influenza (ED) Additional Instructions: return for any worsening symptoms or concerns stay hydrated and rest alternate tylenol and motrin the cough medicine is dangerous to children keep it locked away finish all antibiotics On a cephalosporin?antibiotic, softer bowel movements are to be expected. Call your provider if you move your bowels more than 4 times a day, your bowel movements are almost all liquid, or you get a rash.?? Prescriptions: New cyclobenzaprine 10 mg tablet 10 mg PO TID PRN (Reason: muscle spasm) Qty: 20 0RF cefuroxime axetil 250 mg tablet 250 mg PO BID 7 Days Qty: 14 0RF ondansetron 4 mg tablet,disintegrating 4 mg PO Q8H PRN (Reason: nausea and vomiting) Qty: 20 0RF benzonatate 100 mg capsule 100 mg PO BID PRN (Reason: cough) Qty: 14 0RF No Action hydrocodone-acetaminophen 5-300 mg tablet 1 tab PO Q6H PRN (Reason: severe pain (scale score 7-10)) Qty: 20 0RF Rx Instructions: Partial Fill upon patient request. cholecalciferol (vitamin D3) 50 mcg (2,000 unit) capsule 50 mcg PO DAILY 90 Days Qty: 90 3RF clonidine HCl 0.1 mg Tablet 0.1 mg PO DAILY PRN (Reason: Anxiety) docusate sodium [Colace] 100 mg capsule 100 mg PO BID Qty: 30 0RF mirtazapine 45 mg tablet 45 mg PO BEDTIME ondansetron 4 mg tablet,disintegrating 4 mg PO Q8H PRN (Reason: nausea and vomiting) Qty: 14 0RF naproxen 500 mg tablet 500 mg PO BID PRN (Reason: pain) Qty: 20 0RF Ensure Plus High Protein 0.08 gram-1.5 kcal/mL liquid 1 ea PO BID Qty: 237 0RF Rx Instructions: 1 case strawberry amoxicillin-pot clavulanate 875-125 mg tablet 1 tab PO BID Qty: 14 0RF Rx Instructions: Take with plenty of food and eat yogurt daily while taking medication Print Language: Turkish
--- NOTE | 2024-12-14 14:58 | ECG_ITS ---
Test Reason : CHESTPAIN Blood Pressure : */* mmHG Vent. Rate : 95 BPM Atrial Rate : 95 BPM P-R Int : 118 ms QRS Dur : 104 ms QT Int : 354 ms P-R-T Axes : 66 62 26 degrees QTcB Int : 444 ms Normal sinus rhythm Incomplete right bundle branch block Nonspecific ST abnormality Borderline ECG When compared with ECG of 25-Sep-2022 12:32, Vent. rate has increased by 33 bpm Referred By: Apolonia Grimes Electronically Signed By: QUIANA LOERA MD
[2024-12-14 15:45] LABS: MANUAL DIFF FLAG NO
[2024-12-14 15:46] LABS: Basophils Percent Auto 0.2 % (0-2); Eosinophils Absolute Auto 0.1 X10*3/uL (0.0-0.4); Eosinophils Percent Auto 1.2 % (0-4); Hematocrit 38.3 % (37.0-47.0); Hemoglobin 12.6 g/dl (12.0-16.0); Imm Gran Abs Auto 0.02 X10*3/uL (0.00-0.03); Imm Gran Pct Auto 0.3 % (0.0-0.4); Lymphocytes Absolute Auto 1.7 X10*3/uL (1.2-4.9); Lymphocytes Percent Auto 29.3 % (20-40); Mean Corpuscular HGB Conc 32.9 g/dl (31.0-35.0); Mean Corpuscular Hemoglobin 31.4 pg (27.0-33.0); Mean Corpuscular Volume 95.5 fL (80.0-98.0); Mean Platelet Volume 10.3 fL (9.4-12.3); Monocytes Absolute Auto 0.5 X10*3/uL (0.1-1.2); Monocytes Percent Auto 8.9 % (2-11); Neutrophils Absolute Auto 3.4 x10*3/uL (2.0-8.3); Neutrophils Percent Auto 60.1 % (45-73); Platelet Count 234 X10*3/uL (160-400); Red Blood Count 4.01 X10*6/uL (4.20-5.50); Red Cell Distribution Width 13.3 % (11.0-16.0); White Blood Count 5.7 X10*3/uL (4.8-10.8)
[2024-12-14 16:07] LABS: Alanine Aminotransferase 13 U/L (0-31); Anion Gap 11 (12-20); Aspartate Amino Transferase 26 U/L (5-31); Bilirubin Direct 0.1 mg/dL (0.0-0.5); Bilirubin Total 0.3 mg/dL (0.0-1.0); Blood Urea Nitrogen 6 mg/dL (9-16); Calcium 8.8 mg/dL (8.4-10.2); Carbon Dioxide 26 mmol/L (22-29); Chloride 102 mmol/L (96-108); Creatinine Clr Calc Pharmacy 82.6; Estimated Glomerular Filt Rate > 60; Glucose Random 85 mg/dL (60-115); Lipase 18 U/L (8-78); Potassium 3.6 mmol/L (3.3-5.1); Sodium 135 mmol/L (135-145); Total Protein 8.1 g/dL (6.5-8.0)
[2024-12-14 16:09] LABS: Appearance Urine Cloudy; Color Urine Dark Yellow; Glucose Urine UA Negative (Negative); Leukocyte Esterase Urine Trace (Negative); Nitrite Urine Positive (Negative); Specific Gravity - Urine >= 1.030 (1.005-1.025); UMIC TRIGGER UACC YES; Urine Blood Large (3+) (Negative); Urine Ketones Trace mg/dL (Negative); Urine Protein 30 (1+) mg/dL (Neg-Trace)
[2024-12-14 16:11] LABS: Bacteria Urine 4+ (None Seen); Hyaline Casts Urine 0-2 /LPF (0-2); RBC Urine >20 /HPF (0-2); UACC Culture Trigger YES
[2024-12-14 16:15] LABS: Alkaline Phosphatase 56 U/L (39-117); HCG Quantitative < 2 mIU/mL; Troponin-I High Sensitivity < 2.7 ng/L (<3.5-17.0)
[2024-12-14 16:31] LABS: Influenza A PCR POSITIVE (Negative); Influenza B PCR NEGATIVE (Negative); Resp Syncy Virus RNA Qual PCR NEGATIVE (Negative); SARS COV2 PCR INHOUSE NEGATIVE (Negative)
[2024-12-14 17:42] VITALS: BP 119/67; PULSE 78; RESP 18; TEMP 36.6; O2SAT 98
[2024-12-14] MEDS: ondansetron HCL 4 MG/2 ML VIAL IVPUSH (20:21)
[2024-12-14] MEDS: Ketorolac Tromethamine 15 MG/ML VIAL IVPUSH (20:21)
[2024-12-14] MEDS: cefTRIAXone sodium 1 GM VIAL IVPUSH (20:24)
[2024-12-14] MEDS: Lactated Ringers 1,000 ML 999 ML IV (20:25)
--- NOTE | 2024-12-14 20:31 | PC.NURSE ---
requested annelise from pharmacy
[2024-12-14] MEDS: HYDROcodone/Homat 5/1.5/5 ML 5 ML SYRUP PO (21:26)
[2024-12-14 21:30] VITALS: BP 122/71; PULSE 79; RESP 16; TEMP 36.9; O2SAT 98
[2024-12-14 21:58] VITALS: BP 122/71; PULSE 79; RESP 16; TEMP 36.9; O2SAT 98
== END 2024-12-14 21:58 | disposition home or self-care (01) ==
PROVIDERS: Physician Assistant Medical; Emergency Provider Emergency Medicine; PCP Internal Medicine
DX: J10.1 Influenza due to other identified influenza virus with other respiratory manifestations (principal); N39.0 Urinary tract infection, site not specified; R11.2 Nausea with vomiting, unspecified; R50.9 Fever, unspecified; M79.10 Myalgia, unspecified site; R07.89 Other chest pain; R05.9 Cough, unspecified; R51.9 Headache, unspecified; F17.210 Nicotine dependence, cigarettes, uncomplicated; Z03.818 Encounter for observation for suspected exposure to other biological agents ruled out; Z79.899 Other long term (current) drug therapy
CPT/HCPCS: 0241U; 71046; 80048; 80076; 81001; 83690; 83735; 84484; 84702; 85025; 87086; 87088; 87186; 93005; 96361; 96374; 96375; 99284; J0696; J1885; J2405; J7120

== ENCOUNTER → 2024-12-14 14:58 | Outpatient (BNV) | payer OTHER, SELFPAY | PROVIDERS: Emergency Provider Emergency Medicine; PCP Internal Medicine; Visit Provider Internal Medicine Cardiovascular Disease | DX: R07.9 Chest pain, unspecified (principal); I45.19 Other right bundle-branch block; R94.31 Abnormal electrocardiogram [ECG] [EKG] | CPT/HCPCS: 93010 ==

== ENCOUNTER → 2024-12-14 14:59 | Outpatient (BNV) | payer OTHER, SELFPAY | PROVIDERS: PCP Internal Medicine; Visit Provider Radiology Diagnostic Radiology | DX: R07.9 Chest pain, unspecified (principal) | CPT/HCPCS: 71046 ==

== ENCOUNTER 2025-03-28 22:39 | Emergency (ER) | payer OTHER, SELFPAY ==
[2025-03-28 23:09] VITALS: BP 143/74; PULSE 67; RESP 16; TEMP 36.5; O2SAT 100; BMI 17.1
== END 2025-03-29 01:13 | disposition left against medical advice (07) ==
PROVIDERS: Emergency Provider Emergency Medicine; PCP Internal Medicine
DX: R21 Rash and other nonspecific skin eruption (principal)
CPT/HCPCS: 99281